=== PATIENT | female | born 1935 | race Caucasian/White ===

== ENCOUNTER 2020-04-07 11:14 | Observation (INO) ==
[2020-04-07] MEDS ORDERED: IOPAMIDOL 100 ML BOTTLE IV ONE (11:15)
[2020-04-07] MEDS ORDERED: 0.9 % SODIUM CHLORIDE 1,000 ML IV ONE (11:27)
[2020-04-07 12:03] LABS: Basophils # (Auto) 0.04 K/mcL (0.00-0.30); Basophils % (Auto) 0.7 % (0.0-2.0); Eosinophils # (Auto) 0.18 K/mcL (0.00-0.70); Eosinophils % (Auto) 2.9 % (0.0-7.0); Granulocytes % (Auto) 77.3 % (38.0-78.0); Hematocrit 42.1 % (34.1-44.9); Lymphocytes # (Auto) 0.71 K/mcL (1.50-4.80); Lymphocytes % (Auto) 11.6 % (15.5-49.0); Mean Cell Volume 85.9 fL (80.0-100.0); Mean Corpuscular HGB Conc 33.3 g/dL (31.0-36.0); Mean Platelet Volume 9.7 fL (7.4-10.4); Monocytes # (Auto) 0.46 K/mcL (0.10-0.90); Monocytes % (Auto) 7.5 % (1.0-12.0); Platelet Count 236 K/mcL (140-440); Red Cell Distribution Width 13.7 % (11.5-14.5); WBC 6.1 K/mcL (4.50-11.00)
[2020-04-07] MEDS ORDERED: ONDANSETRON 4 MG/2 ML VIAL IV ONE (12:12)
--- NOTE | 2020-04-07 12:16 | Emergency Department Note ---
Weakness HPI - General Chief complaint: Weakness Stated complaint: weakness, nausea Time Seen by Provider: 04/07/20 11:17 Source: patient, family, EMS Mode of arrival: ambulatory Limitations: no limitations - History of Present Illness HPI Narrative: 84-year-old female comes in complaining of severe lumbar area pain such that she cannot ambulate anymore. She actually fell 6 days ago and was seen here by Krzysztof Dong PA-C. I reviewed his note. She was discharged home with conservative care after no acute injury seen besides her lower back sprain. Today however she is feeling weak and tired. She is taking hydrocodone which is not hers-someone else's prescription-and so was not had a bowel movement for several days. Her blood pressure is up and she is not able to take any of her medicines because she is nauseous and having vomiting. Cannot hold anything down. Her back continues to hurt but she is able to urinate. No fever or recent illness. She falls because she has balance issues Her daughter was present for the interview and exam and notes that the patient was thinking about committing suicide because her pain was so bad earlier this week but was too weak to follow through. She does not actually want to however just that she wants some relief from her pain - Related Data Home Medications Medication Instructions Recorded Confirmed apixaban 2.5 mg tablet 2.5 mg PO BID 05/28/18 04/07/20 diltiazem HCl 120 mg tablet 120 mg PO BID tab 05/28/18 04/07/20 metoprolol tartrate 50 mg tablet 50 mg PO BID 05/28/18 04/07/20 furosemide 20 mg tablet 20 mg PO QDAY PRN #90 tab 09/19/19 04/07/20 potassium chloride 10 mEq 10 meq PO QDAY PRN #90 tab 09/19/19 04/07/20 tablet,extended release Previous Rx's Medication Instructions Recorded cholecalciferol (vitamin D3) 50 2,000 unit PO QDAY #90 cap 03/15/19 mcg (2,000 unit) capsule chlorthalidone 25 mg tablet 25 mg PO QDAY #90 tab 09/19/19 Albuterol Sulfate [Ventolin] 2 puff INH Q4HP PRN #1 inhaler 01/30/20 fluoxetine 20 mg capsule 40 mg PO QDAY #60 cap 04/20/20 Allergies Allergy/AdvReac Type Severity Reaction Status Date / Time lisinopril Allergy Unknown Unknown Verified 04/07/20 11:18 Review of Systems All systems ED: reviewed and negative except as stated. Past Medical History - Past Medical History Attestation: Yes: The following information was validated with the patient. 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) Pulmonary embolism (Chronic ~08/15/17) Cardiomegaly (Chronic) Hyperlipidemia (Chronic) Memory loss (Chronic) Hypothyroidism (Chronic) 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) Secondary hyperparathyroidism of renal origin (Chronic) CKD (chronic kidney disease) stage 3, GFR 30-59 ml/min (Chronic) Benign hypertension with CKD (chronic kidney disease) stage III (Chronic) Syncope (Chronic) History of fall (Chronic) Stroke (Chronic) Cardiomyopathy, hypertrophic (Chronic) Benign tumor of heart (Chronic) Hyperthyroidism (Chronic) Depression (Chronic) Dizziness (Chronic) Confusion (Chronic) Acute anxiety (Resolved) COPD with exacerbation (Resolved) Dyspnea (Resolved) Elevated creatine kinase (Resolved) Headache (Resolved) Palpitation (Resolved) Skin lesion (Inactive) Past Surgical History (Last Reviewed 02/17/20 @ 06:33 by COOPER Cruz) History of cholecystectomy (Chronic ~11/28/14) History of ventriculoperitoneal shunting (Chronic) - Social History smoking status: Former smoker Physical Exam Normocephalic atraumatic. Conjunctive are clear sclerae white nonicteric. No nasal discharge or congestion. Oropharynx and tongue are dry. Neck is supple without lymphadenopathy or thyromegaly. Heart is mild tachycardia but regular rhythm. No murmur appreciated. Lungs are clear to auscultation bilaterally without wheezes rales rhonchi or respiratory distress. Abdomen is soft nontender nondistended. Her daughter and I helped her sit up and I palpated her lumbar spine area which is diffusely tender but I do not see any ecchymosis laceration abrasion or any other acute finding. There is really no point tenderness anywhere nor step-off. She does have lots of seborrheic keratosis across her back. No pedal edema. She is alert oriented able to give me reasonable history Limitations: no limitations Course Vital Signs Temperature 98.1 F 04/07/20 11:15 Pulse Rate 100 H 04/07/20 11:15 Respiratory Rate 18 04/07/20 11:15 Blood Pressure 217/114 04/07/20 11:15 Pulse Oximetry (%) 95 04/07/20 11:15 Temperature 98.1 F 04/07/20 11:15 Pulse Rate 111 H 04/07/20 15:50 Respiratory Rate 20 04/07/20 15:50 Blood Pressure 147/88 04/07/20 15:00 Pulse Oximetry (%) 95 04/07/20 15:50 Weakness - Lab Data Lab results reviewed: Yes I reviewed the patient's lab results. Result diagrams: 04/07/20 11:37 04/07/20 11:36 Lab Results 04/07/20 04/07/20 04/07/20 Range/Units 11:36 11:36 11:36 WBC (4.50-11.00) K/mcL RBC (3.59-5.38) M/mcL Hgb (11.2-15.7) g/dL Hct (34.1-44.9) % MCV (80.0-100.0) fL MCH (26.0-34.0) pg MCHC (31.0-36.0) g/dL RDW (11.5-14.5) % Plt Count (140-440) K/mcL MPV (7.4-10.4) fL Gran % (38.0-78.0) % Lymph % (Auto) (15.5-49.0) % Graves % (Auto) (1.0-12.0) % Eos % (Auto) (0.0-7.0) % Baso % (Auto) (0.0-2.0) % Gran # (1.80-8.00) K/mcL Lymph # (Auto) (1.50-4.80) K/mcL Graves # (Auto) (0.10-0.90) K/mcL Eos # (Auto) (0.00-0.70) K/mcL Baso # (Auto) (0.00-0.30) K/mcL Sodium 141 (133-145) mmol/L Potassium 3.7 (3.3-5.1) mmol/L Chloride 102 (96-108) mmol/L Carbon Dioxide 24 (22-30) mmol/L Anion Gap 15.0 (8-16) BUN 21 (8-23) mg/dl Creatinine 0.9 (0.6-1.1) mg/dl GFR Calculation 58 Glucose 108 H (70-105) mg/dL Calcium 8.7 (8.6-10.4) mg/dl Total Bilirubin 0.9 (0.0-1.0) mg/dL AST 26 (0-37) U/l ALT 17 (0-40) U/l Alkaline Phosphatase 113 (39-117) U/L Total Creatine Kinase 36 (24-170) IU/L Troponin T < 0.01 (0-0.03) ng/ml C-Reactive Protein 5.3 H (0.0-0.8) mg/dl Total Protein 6.6 (5.9-8.4) gm/dL Albumin 3.7 (3.2-5.2) gm/dL Globulin 2.9 (2.2-3.7) gm/dL Albumin/Globulin Ratio 1.3 (1.0-2.3) Prealbumin 14.5 L (20-40) mg/dl Lipase 23 (7-60) U/L Procalcitonin 0.08 (<0.10) ng/mL TSH 5.69 H (0.27-5.01) uIU/ml Urine Color Urine Appearance Urine pH (5.0-9.0) Ur Specific [place] (1.000-1.035) Urine Protein (NEG) mg/dL Urine Glucose (UA) (NEG) mg/dL Urine Ketones (NEG) mg/dL Urine Occult Blood (<0.03) mg/dL Urine Nitrate (NEG) Urine Bilirubin (NEG) mg/dL Urine Urobilinogen (NEG) mg/dL Ur Leukocyte Esterase (NEG) /uL Urine RBC (0-1) /hpf Urine WBC (0-4) /hpf Ur Squamous Epith Cells (0-4) /hpf Ur Transition Epith Cell (0-2) /hpf Urine Bacteria (0) /hpf Ur Culture Indicated? 04/07/20 04/07/20 Range/Units 11:37 12:08 WBC 6.1 (4.50-11.00) K/mcL RBC 4.90 (3.59-5.38) M/mcL Hgb 14.0 (11.2-15.7) g/dL Hct 42.1 (34.1-44.9) % MCV 85.9 (80.0-100.0) fL MCH 28.6 (26.0-34.0) pg MCHC 33.3 (31.0-36.0) g/dL RDW 13.7 (11.5-14.5) % Plt Count 236 (140-440) K/mcL MPV 9.7 (7.4-10.4) fL Gran % 77.3 (38.0-78.0) % Lymph % (Auto) 11.6 L (15.5-49.0) % Graves % (Auto) 7.5 (1.0-12.0) % Eos % (Auto) 2.9 (0.0-7.0) % Baso % (Auto) 0.7 (0.0-2.0) % Gran # 4.72 (1.80-8.00) K/mcL Lymph # (Auto) 0.71 L (1.50-4.80) K/mcL Graves # (Auto) 0.46 (0.10-0.90) K/mcL Eos # (Auto) 0.18 (0.00-0.70) K/mcL Baso # (Auto) 0.04 (0.00-0.30) K/mcL Sodium (133-145) mmol/L Potassium (3.3-5.1) mmol/L Chloride (96-108) mmol/L Carbon Dioxide (22-30) mmol/L Anion Gap (8-16) BUN (8-23) mg/dl Creatinine (0.6-1.1) mg/dl GFR Calculation Glucose (70-105) mg/dL Calcium (8.6-10.4) mg/dl Total Bilirubin (0.0-1.0) mg/dL AST (0-37) U/l ALT (0-40) U/l Alkaline Phosphatase (39-117) U/L Total Creatine Kinase (24-170) IU/L Troponin T (0-0.03) ng/ml C-Reactive Protein (0.0-0.8) mg/dl Total Protein (5.9-8.4) gm/dL Albumin (3.2-5.2) gm/dL Globulin (2.2-3.7) gm/dL Albumin/Globulin Ratio (1.0-2.3) Prealbumin (20-40) mg/dl Lipase (7-60) U/L Procalcitonin (<0.10) ng/mL TSH (0.27-5.01) uIU/ml Urine Color Straw Urine Appearance Clear Urine pH 6.0 (5.0-9.0) Ur Specific [place] 1.010 (1.000-1.035) Urine Protein Neg (NEG) mg/dL Urine Glucose (UA) Negative (NEG) mg/dL Urine Ketones 5/tr A (NEG) mg/dL Urine Occult Blood 0.03 A (<0.03) mg/dL Urine Nitrate Neg (NEG) Urine Bilirubin Neg (NEG) mg/dL Urine Urobilinogen Neg (NEG) mg/dL Ur Leukocyte Esterase Neg (NEG) /uL Urine RBC 1 (0-1) /hpf Urine WBC 1 (0-4) /hpf Ur Squamous Epith Cells 2 (0-4) /hpf Ur Transition Epith Cell < 1 (0-2) /hpf Urine Bacteria 0 (0) /hpf Ur Culture Indicated? No - Radiology Data Radiology results reviewed: Yes I reviewed the patient's radiology results. CT scan of the abdomen pelvis does not reveal any acute cause for her pain CT IMPRESSION: 1. No acute posttraumatic change. History of fall one week prior. 2. 3. Sigmoid diverticulosis, but no evidence for diverticulitis. Mild diverticulitis may be CT occult. 4. Moderate dilatation of bile and pancreatic ducts - most compatible with post cholecystectomy papillary stenosis. 5. Small right and tiny left pleural effusions. Chronic bronchitis changes. 6. Moderate cardiomegaly with heavy calcification in the mitral annulus. 7. Moderate T12, and mild L4 and L5 compression fractures likely due to chronic in osteoporosis. At L4-5, there is severe central canal and lateral recess stenosis due to degenerative facet disease. Interpreted and Authenticated by: Jose Alejandro Valenzuela 04/07/20 Disposition Pt seen by MACHINE OPERATOR HAY STACKER/PA only: No Clinical Impression: Weakness, Drug induced constipation, Central stenosis of spinal canal, Lumbar pain Summary: Likely drug-induced constipation causing her lower belly pain but will get a CT scan of the abdomen and pelvis to be sure-this will allow us to look at her lower spine as well as she continues to have significant pain unrelieved by narcotics. The other possibilities remaining in the differential including cardiac disease versus infectious disease versus pulmonary issues as cause for her weakness. We will check laboratory and start her on IV fluids. Give her pain and nausea medicine. It is noted her blood pressure is very elevated but she is in pain Laboratories were unrevealing. CT scan shows lumbar central canal stenosis - exacerbation of arthritis related to this is likely the cause of her lumbar pain. She got 2 doses of Dilaudid and her blood pressure came down to normal le vels and she was feeling much better. Pre-albumin shows likely malnutrition over the last few month Our social problems specialist Bertha was looking at trying to get her into [facility] for ongoing care. Unfortunately we were unable to get the paperwork through in time to get her there today. She is requiring IV pain medicine to get control. She is not able to take care of herself at home and is not able to walk well, having balance issues. So we will bring her into the hospital on observation status for pain management. Disposition: Xfer As Outpt/Obs ([facility]) Condition: Fair Referrals: Liam Nicholas ARNP [Primary Care Provider] -
[2020-04-07 12:25] LABS: Prealbumin 14.5 mg/dl (20-40)
[2020-04-07 12:36] LABS: ALT/SGPT 17 U/l (0-40); AST/SGOT 26 U/l (0-37); Albumin 3.7 gm/dL (3.2-5.2); Albumin/Globulin Ratio 1.3 (1.0-2.3); Alkaline Phosphatase 113 U/L (39-117); Bilirubin,Total 0.9 mg/dL (0.0-1.0); Blood Urea Nitrogen 21 mg/dl (8-23); C-Reactive Protein 5.3 mg/dl (0.0-0.8); Calcium 8.7 mg/dl (8.6-10.4); Carbon Dioxide 24 mmol/L (22-30); Chloride 102 mmol/L (96-108); Creatine Kinase 36 IU/L (24-170); Globulin 2.9 gm/dL (2.2-3.7); Glomerular Filtration Rate 58; Glucose 108 mg/dL (70-105); Thyroid Stimulating Hormone 5.69 uIU/ml (0.27-5.01)
[2020-04-07] MEDS: HYDROmorphone 0.5 MG/0.5 ML SYRINGE IV PRN ×3 (12:43→23:27)
[2020-04-07 13:16] LABS: Appearance,Urine CLEAR; Bacteria,Urine 0 /hpf (0); Bilirubin,Urine NEG (NEG); Color,Urine STRAW; Culture Indicated,Urine NO; Glucose,Urine (UA) NEGATIVE (NEG); Ketones,Urine 5/TR mg/dL (NEG); Leukocyte Esterase,Urine NEG /uL (NEG); Nitrate,Urine NEG (NEG); Protein,Urine NEG (NEG); Urine Blood 0.03 mg/dL (<0.03); Urine RBC 1 /hpf (0-1); Urine Squamous Epithelial Cell 2 /hpf (0-4); Urine Transitional Epi Cells < 1 /hpf (0-2); Urine WBC 1 /hpf (0-4); Urobilinogen,Urine NEG (NEG)
--- NOTE | 2020-04-07 13:33 | Cat Scan Report ---
CLINICAL INFORMATION: Trauma one week prior. Left lower quadrant pain COMPARISON: None. TECHNIQUE: Following enteric contrast, 80 cc of Isovue-370 were injected intravenously, and 60 seconds later, 0.625 mm helical slices were obtained from the mid heart through the subtrochanteric regions. Following reconstruction, 2.5 mm sagittal, coronal and axial reformatted images were processed and reviewed at bone, lung and soft tissue windows. Five minutes later, 0.625 mm helical slices were obtained from the mid heart through the kidneys and viewed at soft tissue windows.The exam was performed using radiation dose optimization techniques including, but not limited to, automated exposure control, adjustment of the mA and/or kV according to patient size and use of iterative reconstruction technique. FINDINGS: Lung bases show small left and tiny right pleural effusions. Mosaic perfusion pattern in the lung bases likely reflects chronic bronchitis and small airways disease. Scattered scarring or atelectasis is also seen. The heart is moderately enlarged with very heavy calcification of mitral annulus and with small amounts in the aortic valve Abdominal images show scattered cysts throughout the liver ranging up to 4 cm in the caudate lobe. Gallbladder is surgically absent. The intrahepatic, common hepatic and common bile ducts are moderately dilated: CBD is 12 mm with smooth tapering near ampullary region. Pancreas duct also moderately dilated colon 4 mm. Findings are compatible with post cholecystectomy papillary stenosis. The pancreas, and both adrenal glands are normal. There is a 15 mm simple cyst superior pole right kidney. Both kidneys are, otherwise, normal. The abdominal aorta contains a sclerotic plaque, but is normal in diameter. No stenosis seen aortic branches. Four five low-attenuation lesions in the spleen measuring up to 8 mm are likely simple cysts or small benign lymphangiomas or hemangiomas. There is no free air, free fluid or adenopathy. Pelvic images show hysterectomy/ oophorectomy changes. The urinary bladder is normal. There are multiple sigmoid diverticuli, but no CT evidence for diverticulitis. The remaining colon small bowel and stomach are normal. Bone windows show moderate T12 and mild L4 and L5 compression fractures are likely old related osteoporosis IMPRESSION: 1. No acute posttraumatic change. History of fall one week prior. 2. 3. Sigmoid diverticulosis, but no evidence for diverticulitis. Mild diverticulitis may be CT occult. 4. Moderate dilatation of bile and pancreatic ducts - most compatible with post cholecystectomy papillary stenosis. 5. Small right and tiny left pleural effusions. Chronic bronchitis changes. 6. Moderate cardiomegaly with heavy calcification in the mitral annulus. 7. Moderate T12, and mild L4 and L5 compression fractures likely due to chronic in osteoporosis. At L4-5, there is severe central canal and lateral recess stenosis due to degenerative facet disease. Interpreted and Authenticated by: Jose Alejandro Valenzuela 04/07/20
--- NOTE | 2020-04-07 15:21 | Internal Med History&Physical ---
Medical - H&P: [facility] Patient information: Note initiated : 04/07/20 at 3:21 pm Service Date, if different from initiated Date: [] Patient: Nelly Tuttle a 84 y/o F admitted on for weakness, nausea. Chief Complaint: [] Chief complaint: Weakness, nausea, constipation back pain History of present illness: Ms. Tuttle is a 84 year old F presents to the ER with worsening lower back pain/abdominal pain following a fall roughly a week ago. Patient apparently bumped into the kitchen counter and fell on hard surface sustaining back injury. She denied associated chest palpitations/lightheadedness dizziness or seizure- like episode. She denies associated loss of consciousness or neurological changes or incontinence or unilateral weakness. She continued to work with the symptoms including application of local pain medication, used narcotics from a friend with minimal relief. She now presents with worsening pain, constipation and associated nausea and loss of appetite Initial work-up in the ER was consistent with L4-5 compression fracture with severe spinal stenosis however no evidence of neurological compromise. Subsequently hospital service was consulted while patient will require [facility] physical therapy and transition to care facility being coordinated by case management. At the time evaluation patient is alert and oriented. She was able to answer most of the questions or provide history as above. She denies fever, diarrhea, dysuria, rash. 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) Secondary hyperparathyroidism of renal origin (Chronic) CKD (chronic kidney disease) stage 3, GFR 30-59 ml/min (Chronic) Benign hypertension with CKD (chronic kidney disease) stage III (Chronic) Syncope (Chronic) History of fall (Chronic) Stroke (Chronic) 2016 Cardiomyopathy, hypertrophic (Chronic) Benign tumor of heart (Chronic) Hyperthyroidism (Chronic) Depression (Chronic) Dizziness (Chronic) Confusion (Chronic) Acute anxiety (Resolved) COPD with exacerbation (Resolved) Dyspnea (Resolved) Elevated creatine kinase (Resolved) Headache (Resolved) Palpitation (Resolved) Skin lesion (Inactive) Surgical History History of cholecystectomy (Chronic ~11/28/14) Dr. Staton History of ventriculoperitoneal shunting (Chronic) Approx 1959 - [place] Family History Mother Heart disease Father Cancer Family/Other Breast cancer Unknown Aunt Hyperthyroidism Unknown Depression Unknown AV block, 1st degree Unknown Cardiomyopathy Unknown Hypertension Unknown Hyperlipidemia Unknown Dyspnea Unknown Palpitations Unknown CVA (cerebral vascular accident) Unknown LVH (left ventricular hypertrophy) Unknown Sister Heart failure Cancer Social History household members: spouse housing: house marital status: occupational status: retired pets and animals: Yes smoking status: Former smoker alcohol intake frequency: holiday/special occasion only substance use type: does not use Medical - H&P: Meds Home Medications Medication Instructions Recorded Confirmed Type apixaban 2.5 mg tablet 2.5 mg PO BID 05/28/18 04/07/20 History metoprolol tartrate 50 mg tablet 50 mg PO BID 05/28/18 04/07/20 History cholecalciferol (vitamin D3) 50 2,000 unit PO QDAY #90 cap 03/15/19 04/07/20 Rx mcg (2,000 unit) capsule chlorthalidone 25 mg tablet 25 mg PO QDAY #90 tab 09/19/19 04/07/20 Rx furosemide 20 mg tablet 20 mg PO QDAY PRN #90 tab 09/19/19 04/07/20 History potassium chloride 10 mEq 10 meq PO QDAY PRN #90 tab 09/19/19 04/07/20 History tablet,extended release Albuterol Sulfate [Ventolin] 2 puff INH Q4HP PRN #1 inhaler 01/30/20 04/07/20 Rx fluoxetine 20 mg capsule 40 mg PO QDAY #60 cap 03/16/20 04/07/20 Rx Diltiazem HCl [Diltiazem 24Hr Cd] 120 mg PO BID 04/07/20 04/07/20 History Allergies Allergy/AdvReac Type Severity Reaction Status Date / Time lisinopril Allergy Unknown Unknown Verified 04/07/20 11:18 Medical - H&P: Exam - Constitutional Vitals: Temp Pulse Resp BP Pulse Ox 98.1 F 111 H 23 H 147/88 92 04/07/20 11:15 04/07/20 15:00 04/07/20 15:00 04/07/20 15:00 04/07/20 15:00 General appearance: obese Exam: Alert oriented Head normocephalic Oral cavity dry no ear nose discharge Neck no lymphadenopathy S1-S2 regular rhythm Nonlabored breathing Abdomen soft nontender Lower extremity no sinus clubbing no joint swelling Skin no suspicious lesion Psych alert cooperative but anxious Neuro nonfocal Medical - H&P: Reslt - Labs CBC & Chem 7: 04/08/20 05:25 04/08/20 05:25 Labs: Short CBC 04/07/20 Range/Units 11:37 WBC 6.1 (4.50-11.00) K/mcL Hgb 14.0 (11.2-15.7) g/dL Hct 42.1 (34.1-44.9) % Plt Count 236 (140-440) K/mcL BMP 04/07/20 11:36 Sodium 141 Potassium 3.7 Chloride 102 Carbon Dioxide 24 BUN 21 Creatinine 0.9 Glucose 108 H Calcium 8.7 Cardiac Enzymes 04/07/20 04/07/20 Range/Units 11:36 11:36 Total Creatine Kinase 36 (24-170) IU/L Troponin T < 0.01 (0-0.03) ng/ml Liver Function 04/07/20 Range/Units 11:36 Total Bilirubin 0.9 (0.0-1.0) mg/dL AST 26 (0-37) U/l ALT 17 (0-40) U/l Alkaline Phosphatase 113 (39-117) U/L Albumin 3.7 (3.2-5.2) gm/dL Urine 04/07/20 Range/Units 12:08 Urine Color Straw Urine Appearance Clear Urine pH 6.0 (5.0-9.0) Ur Specific [place] 1.010 (1.000-1.035) Urine Protein Neg (NEG) mg/dL Urine Glucose (UA) Negative (NEG) mg/dL Medical - H&P: A/P (1) Lumbar pain Current visit: Yes Status: Acute * Intractable pain secondary to L4-L5 compression fracture with severe spinal stenosis. Start opioids/acetaminophen/local lidocaine patches and physical therapy * Severe weakness and falls-physical therapy/gait and safety eval. * Constipation start aggressive bowel protocol/mag citrate for bowel evacuation * Intractable nausea vomiting secondary abdominal pain/constipation. Continue antiemetics * History of chronic atrial fibrillation currently rate controlled. Anticoagulation on apixaban. * Hypertension continue diltiazem/metoprolol/chlorthalidone * Anxiety/depressive disorder continue fluoxetine * History of CVA currently on anticoagulation on apixaban * Full code Plan * Observation admit * Multimodal pain management * Pre-existing medical condition management home meds * Bowel evacuation * Case management coordinate discharge planning
[2020-04-07] MEDS ORDERED: ALBUTEROL SULFATE 200 PUFF INHALER INH PRN (16:41)
[2020-04-07] MEDS ORDERED: BISACODYL 10 MG SUPP.RECT PR PRN (16:41)
[2020-04-07] MEDS ORDERED: ONDANSETRON 4 MG ODT TABLET SL PRN (16:41)
[2020-04-07] MEDS ORDERED: FUROSEMIDE 20 MG TABLET PO PRN (16:41)
[2020-04-07] MEDS ORDERED: MAGNESIUM CITRATE 300 ML ORAL.SOL PO ONE (16:41)
[2020-04-07] MEDS ORDERED: ACETAMINOPHEN 650 MG/65 ML BOTTLE IV PRN (16:41)
[2020-04-07] MEDS ORDERED: POTASSIUM CHLORIDE 20 MEQ PACKET PO PRN (16:41)
[2020-04-07] MEDS ORDERED: MAGNESIUM SULFATE 2 GM/50 ML BAG IV PRN (16:41)
[2020-04-07] MEDS ORDERED: POTASSIUM CHLORIDE 10 MEQ TABLET PO PRN (16:41)
[2020-04-07] MEDS ORDERED: ONDANSETRON 4 MG/2 ML VIAL IV PRN (16:41)
[2020-04-07] MEDS: METOPROLOL TARTRATE 50 MG TABLET PO SCH (20:18)
[2020-04-07] MEDS: APIXABAN 2.5 MG TABLET PO SCH (20:18)
[2020-04-07] MEDS: DILTIAZEM 120 MG CAP.XL.24H PO SCH (20:18)
[2020-04-07] MEDS: SENNOSIDES/DOCUSATE SODIUM 1 TAB TABLET PO SCH (20:18)
[2020-04-07] MEDS: DOCUSATE SODIUM 100 MG CAPSULE PO SCH (20:18)
[2020-04-07] MEDS: MELATONIN 3 MG TABLET PO PRN (20:20)
[2020-04-07] MEDS ORDERED: MAGNESIUM HYDROXIDE 30 ML ORAL.SUSP PO PRN (21:00)
[2020-04-07] MEDS: 0.9 % SODIUM CHLORIDE 10 ML SYRINGE IV SCH (23:02)
[2020-04-08] MEDS: HYDROmorphone 0.5 MG/0.5 ML SYRINGE IV PRN ×3 (06:03→19:03)
[2020-04-08] MEDS: 0.9 % SODIUM CHLORIDE 10 ML SYRINGE IV SCH ×3 (06:04→21:05)
[2020-04-08 07:01] LABS: Hematocrit 36.1 % (34.1-44.9); Hemoglobin 11.5 g/dL (11.2-15.7); Mean Cell Volume 89.1 fL (80.0-100.0); Mean Corpuscular HGB Conc 31.9 g/dL (31.0-36.0); Mean Platelet Volume 9.8 fL (7.4-10.4); Platelet Count 226 K/mcL (140-440); RBC 4.05 M/mcL (3.59-5.38); WBC 5.4 K/mcL (4.50-11.00)
[2020-04-08 08:07] LABS: Band Neutrophils % 1 % (0-10); Eosinophils % (Manual) 3 % (0-7); Lymphocytes % 24 % (15-49); Monocytes % (Manual) 6 % (1-12); Platelet Estimate NORMAL (NORMAL); RBC Morphology NORMAL (NORMAL); Segmented Neutrophils % 66 % (38-78)
[2020-04-08 08:14] LABS: ALT/SGPT 19 U/l (0-40); AST/SGOT 29 U/l (0-37); Albumin 3.3 gm/dL (3.2-5.2); Albumin/Globulin Ratio 1.2 (1.0-2.3); Alkaline Phosphatase 174 U/L (39-117); Bilirubin,Direct < 0.2 mg/dL (0.0-0.3); Bilirubin,Total 0.5 mg/dL (0.0-1.0); Blood Urea Nitrogen 26 mg/dl (8-23); Calcium 8.3 mg/dl (8.6-10.4); Carbon Dioxide 26 mmol/L (22-30); Chloride 99 mmol/L (96-108); Globulin 2.7 gm/dL (2.2-3.7); Glomerular Filtration Rate 45; Glucose 94 mg/dL (70-105); Lactate Dehydrogenase 198 U/L (94-250); Phosphorous 3.4 mg/dL (2.7-4.5); Triglycerides 104 mg/dl (<150); Uric Acid 6.3 mg/dL (2.5-8.0)
[2020-04-08] MEDS: MULTIVIT,THER IRON,CA,FA & MIN 1 TABLET PO SCH (08:22)
[2020-04-08] MEDS: CHLORTHALIDONE 25 MG TABLET PO SCH (08:22)
[2020-04-08] MEDS: METOPROLOL TARTRATE 50 MG TABLET PO SCH ×2 (08:22→21:05)
[2020-04-08] MEDS: APIXABAN 2.5 MG TABLET PO SCH ×2 (08:22→21:05)
[2020-04-08] MEDS: VITAMIN D3 1,000 UNIT TABLET PO SCH (08:22)
[2020-04-08] MEDS: FLUoxetine HCL 20 MG CAPSULE PO SCH (08:22)
[2020-04-08] MEDS: DILTIAZEM 120 MG CAP.XL.24H PO SCH ×2 (08:23→21:05)
[2020-04-08] MEDS: DOCUSATE SODIUM 100 MG CAPSULE PO SCH ×2 (08:58→21:05)
--- NOTE | 2020-04-08 14:46 | Internal Med Progress Note ---
Medical - PN: Subj Patient information: Note initiated : 04/08/20 at 2:43 pm Service Date, if different from initiated Date: [] Patient: Nelly Tuttle 84 y/o F admitted on 04/07/20 for weakness, nausea. Chief Complaint: [] Interval history: Ms. Tuttle is a 84 year old F presents to the ER with worsening lower back dionte n/abdominal pain following a fall roughly a week ago. Patient apparently bumped into the kitchen counter and fell on hard surface sustaining back injury. She denied associated chest palpitations/lightheadedness dizziness or seizure-like episode. She denies associated loss of consciousness or neurological changes or incontinence or unilateral weakness. She continued to work with the symptoms including application of local pain medication, used narcotics from a friend with minimal relief. She now presents with worsening pain, constipation and associated nausea and loss of appetite Initial work-up in the ER was consistent with L4-5 compression fracture with severe spinal stenosis however no evidence of neurological compromise. Subsequently hospital service was consulted while patient will require to undergo physical therapy and transition to care facility being coordinated by case management. At the time evaluation patient is alert and oriented. She was able to answer most of the questions or provide history as above. She denies fever, diarrhea, dysuria, rash. She denies changes in medications 04/08-patient doing well. No overnight events. No concerns per staff. No fever chills nausea vomiting. Large BM today. Pain improved. Continuing opioids/Tylenol. Transitioning to SNF in 24 hours. Continue PT OT. - Constitutional Vitals: Vital Signs Temp Pulse Resp BP Pulse Ox 98.3 F 47 L 18 137/52 97 04/08/20 14:36 04/08/20 14:36 04/08/20 14:36 04/08/20 14:36 04/08/20 14:36 Period Temp Pulse Resp BP Sys/Espinoza Pulse Ox Last 24 Hr 97.4 F-98.3 F 47-115 18-23 115-180/52-97 88-97 Intake and Output 04/08/20 04/08/20 04/08/20 05:59 13:59 21:59 Intake Total 700 860 Balance 700 860 Intake & Output: Intake & Output 04/08/20 04/08/20 04/08/20 05:59 13:59 21:59 Intake Total 700 860 Balance 700 860 Intake: Oral 700 860 Other: Meal Lunch Percent of Meal Consumed 75% Feeding Ability Assist with Tray Set Up # Voids 1 1 # Bowel Movements 1 General appearance: no acute distress Exam: Alert oriented Nonlabored breathing No anxiety Nondistended abdomen Medical - PN: Obj Da - Labs CBC & Chem 7: 04/08/20 05:25 04/08/20 05:25 Labs: Abnormal Lab Results 04/08/20 04/07/20 04/07/20 05:25 12:08 11:37 Lymph % (Auto) 11.6 L Lymph # (Auto) 0.71 L BUN 26 H Glucose Calcium 8.3 L GGT 203 H Alkaline Phosphatase 174 H C-Reactive Protein Prealbumin TSH Urine Ketones 5/tr A Urine Occult Blood 0.03 A 04/07/20 11:36 Lymph % (Auto) Lymph # (Auto) BUN Glucose 108 H Calcium GGT Alkaline Phosphatase C-Reactive Protein 5.3 H Prealbumin 14.5 L TSH 5.69 H Urine Ketones Urine Occult Blood Meds: Medications Acetaminophen (Tylenol) 650 mg PO Q4-6HP PRN; Protocol PRN Reason: Per Pain Protocol/Fever > 101 Albuterol Sulfate (Ventolin) 2 puff INH Q4HP PRN PRN Reason: short of breath, cough, wheeze Apixaban (Eliquis) 2.5 mg PO BID [facility] Last Admin: 04/08/20 08:22 Dose: 2.5 mg Documented by: Bisacodyl (Dulcolax) 10 mg VA Q2-3DAYS PRN PRN Reason: Constipation Chlorthalidone (Hygroton) 25 mg PO QDAY [facility] Last Admin: 04/08/20 08:22 Dose: 25 mg Documented by: Diltiazem HCl (Cardizem Sr) 120 mg PO BID [facility] Last Admin: 04/08/20 08:23 Dose: 120 mg Documented by: Docusate Sodium (Colace) 100 mg PO BID [facility] Last Admin: 04/08/20 08:58 Dose: Not Given Documented by: Fluoxetine HCl (Prozac) 40 mg PO QDAY [facility] Last Admin: 04/08/20 08:22 Dose: 40 mg Documented by: Furosemide (Lasix) 20 mg PO DAILYP PRN PRN Reason: edema Hydromorphone HCl (Dilaudid) 0 mg IV Q4HP PRN; Protocol PRN Reason: Per Pain Protocol Last Admin: 04/08/20 09:49 Dose: 0.5 mg Documented by: Acetaminophen (Ofirmev) 650 mg in 65 mls @ 130 mls/hr IV Q6HP PRN; Protocol PRN Reason: Per Pain Protocol/Fever > 101 Last Admin: 04/07/20 23:33 Dose: 130 mls/hr Documented by: Magnesium Sulfate (Magnesium Sulfate) 2 gm in 50 mls @ 50 mls/hr IV UD PRN PRN Reason: MG = or < 1.7 Iron Carb/Multivit/Sales And Events Coordinator/Folic Acid (Multivitamin W/Minerals) 1 tab PO DAILY [facility] Last Admin: 04/08/20 08:22 Dose: 1 tab Documented by: Lidocaine (Lidoderm) 1 patch TOPICAL [facility] Magnesium Hydroxide (Milk Of Magnesia) 30 ml PO HSP PRN PRN Reason: Constipation Melatonin (Melatonin 3mg Tablet) 3 mg PO HSP PRN PRN Reason: Insomnia Last Admin: 04/07/20 20:20 Dose: 3 mg Documented by: Metoprolol Tartrate (Lopressor) 50 mg PO BID [facility] Last Admin: 04/08/20 08:22 Dose: 50 mg Documented by: Ondansetron HCl (Zofran Odt) 4 mg SL Q4-6HP PRN; Protocol PRN Reason: Nausea And Vomiting Ondansetron HCl (Zofran) 4 mg IV Q4-6HP PRN; Protocol PRN Reason: Nausea And Vomiting Oxycodone HCl (Roxicodone) 2.5 mg PO Q4-6HP PRN; Protocol PRN Reason: Per Pain Protocol Polyethylene Glycol (Miralax) 17 gm PO DAILYP PRN PRN Reason: Constipation Potassium Chloride (Klor-Con) 40 meq PO DAILYP PRN PRN Reason: K+ < 3.5 Potassium Chloride (Kdur) 10 meq PO DAILYP PRN PRN Reason: WHEN TAKES FUROSEMIDE Senna/Docusate Sodium (Senna Plus Tablet) 1 tab PO [facility] Last Admin: 04/07/20 20:18 Dose: 1 tab Documented by: Sodium Chloride (Saline Flush) 10 ml IV Q8 [facility] Last Admin: 04/08/20 06:04 Dose: 10 ml Documented by: Tramadol HCl (Ultram) 50 mg PO Q4HP PRN PRN Reason: Pain Vitamin D (Vitamin D3) 2,000 unit PO DAILY [facility] Last Admin: 04/08/20 08:22 Dose: 2,000 unit Documented by: Medical - PN: A/P - Time Spent With Patient Total time spent is greater than 50% in coordination of care (as documented) at patient's floor/unit and/or counseling patient: 25 - 35 minutes (1) Lumbar pain Status: Acute Assessment and plan: * Intractable lower back - pain secondary to L4-L5 compression fracture with severe spinal stenosis. Start opioids/acetaminophen/local lidocaine patches and physical therapy * Severe weakness and falls-physical therapy/gait and safety eval/directed therapies. * Constipation -resolved with laxatives * Intractable nausea vomiting secondary abdominal pain/constipation. Continue antiemetics * History of chronic atrial fibrillation currently rate controlled. Anticoagulation on apixaban. * Hypertension continue diltiazem/metoprolol/chlorthalidone * Anxiety/depressive disorder continue fluoxetine * History of CVA currently on anticoagulation on apixaban * Full code Plan * Continue pain management * Pre-existing medical condition management home meds * PT OT/nutrition support * Discharge likely in 24 hours to SNF Current Visit: Yes Medical - PN: Qual - VTE Deep Vein Thrombosis/Pulmonary Embolism Present on Admission: No
[2020-04-08] MEDS: traMADol 50 MG TABLET PO PRN (19:16)
[2020-04-08] MEDS: LIDOCAINE PATCH TOPICAL SCH (21:04)
[2020-04-08] MEDS: SENNOSIDES/DOCUSATE SODIUM 1 TAB TABLET PO SCH (21:05)
[2020-04-09] MEDS: traMADol 50 MG TABLET PO PRN ×5 (02:34→21:40)
[2020-04-09] MEDS: 0.9 % SODIUM CHLORIDE 10 ML SYRINGE IV SCH ×3 (05:24→20:02)
[2020-04-09 06:29] LABS: Hematocrit 34.9 % (34.1-44.9); Hemoglobin 11.2 g/dL (11.2-15.7); Mean Corpuscular HGB Conc 32.1 g/dL (31.0-36.0); Mean Platelet Volume 9.7 fL (7.4-10.4); Platelet Count 220 K/mcL (140-440); RBC 3.92 M/mcL (3.59-5.38); WBC 6.6 K/mcL (4.50-11.00)
[2020-04-09 06:59] LABS: ALT/SGPT 26 U/l (0-40); AST/SGOT 34 U/l (0-37); Albumin 3.3 gm/dL (3.2-5.2); Albumin/Globulin Ratio 1.2 (1.0-2.3); Alkaline Phosphatase 217 U/L (39-117); Bilirubin,Direct < 0.2 mg/dL (0.0-0.3); Bilirubin,Total 0.5 mg/dL (0.0-1.0); Blood Urea Nitrogen 27 mg/dl (8-23); Calcium 8.3 mg/dl (8.6-10.4); Carbon Dioxide 25 mmol/L (22-30); Chloride 100 mmol/L (96-108); Globulin 2.7 gm/dL (2.2-3.7); Glomerular Filtration Rate 45; Glucose 98 mg/dL (70-105); Lactate Dehydrogenase 199 U/L (94-250); Phosphorous 2.8 mg/dL (2.7-4.5); Triglycerides 120 mg/dl (<150); Uric Acid 6.4 mg/dL (2.5-8.0)
[2020-04-09 08:24] LABS: Eosinophils % (Manual) 8 % (0-7); Lymphocytes % 16 % (15-49); Monocytes % (Manual) 9 % (1-12); Platelet Estimate NORMAL (NORMAL); RBC Morphology NORMAL (NORMAL); Segmented Neutrophils % 67 % (38-78)
[2020-04-09] MEDS: VITAMIN D3 1,000 UNIT TABLET PO SCH (09:06)
[2020-04-09] MEDS: MULTIVIT,THER IRON,CA,FA & MIN 1 TABLET PO SCH (09:06)
[2020-04-09] MEDS: FLUoxetine HCL 20 MG CAPSULE PO SCH (09:06)
[2020-04-09] MEDS: DILTIAZEM 120 MG CAP.XL.24H PO SCH ×2 (09:06→20:01)
[2020-04-09] MEDS: METOPROLOL TARTRATE 50 MG TABLET PO SCH ×2 (09:06→20:01)
[2020-04-09] MEDS: APIXABAN 2.5 MG TABLET PO SCH ×2 (09:06→20:01)
[2020-04-09] MEDS: CHLORTHALIDONE 25 MG TABLET PO SCH (09:06)
[2020-04-09] MEDS: DOCUSATE SODIUM 100 MG CAPSULE PO SCH ×2 (09:06→20:01)
--- NOTE | 2020-04-09 10:05 | Discharge Summary ---
Medical - DS: Prov Patient information: Note initiated : 04/13/20 at 09:03 am Service Date, if different from initiated Date: [] Patient: Nelly Tuttle 84 y/o F admitted on 04/07/20 for weakness, nausea. Chief Complaint: [] Date of admission: 04/07/20 16:28 Discharge date: 04/13/20 Primary care physician: Liam Nicholas Consults: 04/08/20 07:07 Consult to Physician [CONS] Routine Comment: Consulting Provider: Dany Goodman Reason For Exam: Physician to Consult Medical - DS: Meds - Discharge Medications Prescriptions: Lidocaine [Lidoderm] 1 patch TOPICAL HS #7 patch Prescription Printed oxyCODONE HCL [Roxicodone] 2.5 mg PO Q4-6HP PRN #10 tab PRN Reason: Per Pain Protocol Prescription Printed traMADol [Ultram] 50 mg PO Q4HP PRN #20 tab PRN Reason: Pain Level 1-3 Prescription Printed Active and Home Medications: Home Medications apixaban 2.5 mg tablet 2.5 mg PO BID 05/28/18 [History Confirmed 04/07/20 Last Taken Unknown] metoprolol tartrate 50 mg tablet 50 mg PO BID 05/28/18 [History Confirmed 04/07/20 Last Taken Unknown] cholecalciferol (vitamin D3) 50 mcg (2,000 unit) capsule 2,000 unit PO QDAY #90 cap 03/15/19 [Rx Confirmed 04/07/20 Last Taken Unknown] chlorthalidone 25 mg tablet 25 mg PO QDAY #90 tab 09/19/19 [Rx Confirmed 04/07/20 Last Taken Unknown] furosemide 20 mg tablet 20 mg PO QDAY PRN #90 tab 09/19/19 [History Confirmed 04/07/20 Last Taken Unknown] potassium chloride 10 mEq tablet,extended release 10 meq PO QDAY PRN #90 tab 09/19/19 [History Confirmed 04/07/20 Last Taken Unknown] Albuterol Sulfate [Ventolin] 2 puff INH Q4HP PRN #1 inhaler 01/30/20 [Rx Confirmed 04/07/20 Last Taken Unknown] fluoxetine 20 mg capsule 40 mg PO QDAY #60 cap 03/16/20 [Rx Confirmed 04/07/20 Last Taken Unknown] Diltiazem HCl [Diltiazem 24Hr Cd] 120 mg PO BID 04/07/20 [History Confirmed 04/07/20 Last Taken Unknown] Acetaminophen [Tylenol] 650 mg PO Q4-6HP PRN tab 04/09/20 [Rx Last Taken Unknown] Bisacodyl [Dulcolax] 10 mg CO Q2-3DAYS PRN supp.rect 04/09/20 [Rx Last Taken Unknown] Lidocaine [Lidoderm] 1 patch TOPICAL HS #7 patch 04/09/20 [Rx Last Taken Unknown] oxyCODONE HCL [Roxicodone] 2.5 mg PO Q4-6HP PRN #10 tab 04/09/20 [Rx Last Taken Unknown] traMADol [Ultram] 50 mg PO Q4HP PRN #20 tab 04/09/20 [Rx Last Taken Unknown] Medical - DS: Hosp Hospital Course: Discharge diagnosis * Intractable lower back - pain secondary to L4-L5 compression fracture with severe spinal stenosis. Clinically improved on opioids/acetaminophen/local lidocaine patches and physical therapy. Discharging to SNF for continued therapies * Severe weakness and falls-continue directed therapies at SNF * Constipation -resolved with laxatives. Continue stool softeners * Intractable nausea vomiting secondary abdominal pain/constipation. Resolved * History of chronic atrial fibrillation currently rate controlled on metoprolol. Anticoagulation on apixaban. * Hypertension continue diltiazem/metoprolol/chlorthalidone. Suboptimally controlled however dose needs to be uptitrated by primary care physician gradually to affect. Systolic currently around 150s * Anxiety/depressive disorder continue fluoxetine * History of CVA currently on anticoagulation on apixaban Brief hospital course Ms. Tuttle is a 84 year old F presents to the ER with worsening lower back pain/abdominal pain following a fall roughly a week ago. Patient apparently bumped into the kitchen counter and fell on hard surface sustaining back injury. She denied associated chest palpitations/lightheadedness dizziness or seizure- like episode. She denies associated loss of consciousness or neurological changes or incontinence or unilateral weakness. She continued to work with the symptoms including application of local pain medication, used narcotics from a friend with minimal relief. She now presents with worsening pain, constipation and associated nausea and loss of appetite Initial work-up in the ER was consistent with L4-5 compression fracture with severe spinal stenosis however no evidence of neurological compromise. Subsequently hospital service was consulted while patient will require to un dergo physical therapy and transition to care facility being coordinated by case management. At the time evaluation patient is alert and oriented. She was able to answer most of the questions or provide history as above. She denies fever, diarrhea, dysuria, rash. She denies changes in medications 04/08-patient doing well. No overnight events. No concerns per staff. No fever chills nausea vomiting. Large BM today. Pain improved. Continuing opioids/Tylenol. Transitioning to SNF in 24 hours. Continue PT OT. 04/09-nursing staff expressed concerns about patient's behavior and suicidal id eation. Q was consulted. Discharge delayed. Following Q evaluation patient was cleared. No overnight events. Pain in good control. Will likely transfer to SNF in 24 hours 04/10-patient clinically improved. However SNF wants to wait until Monday in light of Q evaluation and concerns of patient's suicidal ideation. Patient will be monitored in the hospital through the weekend. No other events. Pain good control. 04/11-patient doing well. No overnight events. No concerns per staff. No fever chills nausea vomiting. No pain. Denies suicidal ideation. Breakfast. Slept well. Back pain much improved. Anticipate SNF transfer in 48 hours 04/12 patient doing well. No overnight events. No concerns per staff.-No suicidal ideation. Back pain much improved. Tolerating diet and therapies. No anxiety. Await discharge to SNF in 24 hours 04/13-patient doing a lot better. No overnight events. Back pain much improved. Tolerating diet. Intermittent nausea. Stable hemodynamics and labs. Discharging to SNF for continued posthospitalization rehab. Discharge diagnosis: . - Time Spent with Patient Total time spent providing and/or coordinating discharge services: Greater than 30 minutes Medical - DS: Exam - Constitutional Vitals: Vital Signs Temp Pulse Resp BP Pulse Ox 04/09/20 08:00 98.3 F 74 18 185/72 93 04/09/20 04:00 97.9 F 82 16 134/85 97 04/08/20 22:28 98.3 F 89 16 139/76 91 04/08/20 20:00 95 04/08/20 19:03 97.8 F 85 16 144/75 95 04/08/20 16:42 99.5 F H 68 16 139/70 91 04/08/20 15:54 98.0 F 75 16 146/78 92 04/08/20 14:36 98.3 F 47 L 18 137/52 97 04/08/20 12:00 97.4 F 70 18 115/66 91 Intake and Output 04/08/20 04/09/20 04/09/20 21:59 05:59 13:59 Intake Total 400 865 240 Output Total 200 452 350 Balance 200 413 -110 Intake: IV 65 Oral 400 800 240 Output: Void Amount 200 450 350 # of times incontinent of urine 2 Other: Meal Breakfast Percent of Meal Consumed 50% Feeding Ability Independent Urine Appearance Clear Clear Urine Color Dark Yellow Bright Yellow Bright Yellow Urine Odor Normal Strong Normal # Voids 1 1 Weight 169 lb 8 oz Medical - DS: Data Labs on day of discharge: Labs from last 24 hours 04/09/20 04/09/20 05:25 05:25 WBC 6.6 RBC 3.92 Hgb 11.2 Hct 34.9 MCV 89.0 MCH 28.6 MCHC 32.1 RDW 14.0 Plt Count 220 MPV 9.7 Total Counted 100 Seg Neutrophils % 67 Band Neutrophils % Not Reportable Lymphocytes % 16 Monocytes % (Manual) 9 Eosinophils % (Manual) 8 H Platelet Estimate Normal RBC Morphology Normal Sodium 137 Potassium 3.9 Chloride 100 Carbon Dioxide 25 Anion Gap 12.0 BUN 27 H Creatinine 1.1 GFR Calculation 45 Glucose 98 Uric Acid 6.4 Calcium 8.3 L Phosphorus 2.8 Magnesium 2.1 Total Bilirubin 0.5 Direct Bilirubin < 0.2 GGT 270 H AST 34 ALT 26 Alkaline Phosphatase 217 H Lactate Dehydrogenase 199 Total Protein 6.0 Albumin 3.3 Globulin 2.7 Albumin/Globulin Ratio 1.2 Triglycerides 120 Medical - DS: A/P - Patient/Caregiver Discharge Instructions Activity: as per physical therapy, increase activity as tolerated Diet: Regular Diet Additional Instructions: Follow-up PCP in 5 days. Hospitalist recommends SNF physician to check CBC, BMP, UA as a posthospital follow-up in 1 week. Continue regular diet and increase activity as advised and tolerated. All meals in chair, sitting upright at 90 degrees, to prevent aspiration. High protein calorie supplements. Continue aggressive bowel regimen to prevent constipation. Continue fall precautions. Continue aggressive PT and OT evaluation and treatment at [facility]. ST eval and treatment if indicated. Discuss importance of medication adherence. Please review medication list with patient prior to discharge. Return to ER if worsening back pain, fever chills shortness of breath. Prescriptions: Lidocaine [Lidoderm] 1 patch TOPICAL HS #7 patch Prescription Printed oxyCODONE HCL [Roxicodone] 2.5 mg PO Q4-6HP PRN #10 tab PRN Reason: Per Pain Protocol Prescription Printed traMADol [Ultram] 50 mg PO Q4HP PRN #20 tab PRN Reason: Pain Level 1-3 Prescription Printed Other Amb Orders: OT Discharge Order Location: None Selected Physical Therapy at Discharge - General Location: None Selected - Problem Maintenance (1) Lumbar pain Status: Acute - Follow up Plan Follow up with: Liam Nicholas ARNP [Primary Care Provider] - (Please call and schedule hospital follow up appointment to meet your transportation needs.) Disposition: Xfer SNF Care Plan Goals: This discharge packet is provided to you to help keep you informed about your care. We want to ensure you get everything you need when you go home. You will also be receiving a call from us in a few days to follow up with you and see how you are doing since your discharge. This gives us a chance to listen to any concerns you maybe experiencing since you were discharged or any additional needs you may have, as well as providing us feedback on your care experience. We strive to always provide excellent care and thank you for your feedback and for choosing [facility]. Prognosis: Fair Rehab Potential: Fair I certify that the patient requires SNF services: Yes Overall status at discharge: patient is progressing back to baseline Medical - DS: Qual - VTE Deep Vein Thrombosis/Pulmonary Embolism Present on Admission: No
[2020-04-09] MEDS: SENNOSIDES/DOCUSATE SODIUM 1 TAB TABLET PO SCH (20:01)
[2020-04-09] MEDS: LIDOCAINE PATCH TOPICAL SCH ×2 (20:02→20:10)
[2020-04-09] MEDS: MELATONIN 3 MG TABLET PO PRN (21:40)
[2020-04-10] MEDS: ACETAMINOPHEN 325 MG TABLET PO PRN ×2 (00:15→16:21)
[2020-04-10] MEDS: traMADol 50 MG TABLET PO PRN ×4 (01:42→18:48)
[2020-04-10] MEDS: hydrALAZINE 20 MG/ML VIAL IV PRN ×2 (02:58→12:07)
[2020-04-10] MEDS: 0.9 % SODIUM CHLORIDE 10 ML SYRINGE IV SCH ×3 (03:00→20:59)
[2020-04-10 06:39] LABS: Hematocrit 36.7 % (34.1-44.9); Hemoglobin 12.3 g/dL (11.2-15.7); Mean Cell Volume 86.8 fL (80.0-100.0); Mean Corpuscular HGB Conc 33.5 g/dL (31.0-36.0); Mean Platelet Volume 9.7 fL (7.4-10.4); Platelet Count 260 K/mcL (140-440); RBC 4.23 M/mcL (3.59-5.38); Red Cell Distribution Width 13.7 % (11.5-14.5)
[2020-04-10 07:00] LABS: Bilirubin,Direct < 0.2 mg/dL (0.0-0.3); Chloride 99 mmol/L (96-108)
[2020-04-10 07:01] LABS: ALT/SGPT 23 U/l (0-40); AST/SGOT 30 U/l (0-37); Albumin 3.2 gm/dL (3.2-5.2); Alkaline Phosphatase 191 U/L (39-117); Bilirubin,Total 0.7 mg/dL (0.0-1.0); Blood Urea Nitrogen 17 mg/dl (8-23); Calcium 8.7 mg/dl (8.6-10.4); Carbon Dioxide 23 mmol/L (22-30); Globulin 3.3 gm/dL (2.2-3.7); Glomerular Filtration Rate 51; Glucose 113 mg/dL (70-105); Lactate Dehydrogenase 235 U/L (94-250); Phosphorous 2.7 mg/dL (2.7-4.5); Triglycerides 148 mg/dl (<150); Uric Acid 6.6 mg/dL (2.5-8.0)
[2020-04-10 07:17] LABS: Eosinophils % (Manual) 1 % (0-7); Lymphocytes % 9 % (15-49); Monocytes % (Manual) 6 % (1-12); Platelet Estimate NORMAL (NORMAL); RBC Morphology NORMAL (NORMAL); Segmented Neutrophils % 84 % (38-78)
[2020-04-10] MEDS: FLUoxetine HCL 20 MG CAPSULE PO SCH (08:05)
[2020-04-10] MEDS: VITAMIN D3 1,000 UNIT TABLET PO SCH (08:05)
[2020-04-10] MEDS: METOPROLOL TARTRATE 50 MG TABLET PO SCH ×2 (08:06→21:00)
[2020-04-10] MEDS: APIXABAN 2.5 MG TABLET PO SCH ×2 (08:06→20:59)
[2020-04-10] MEDS: DOCUSATE SODIUM 100 MG CAPSULE PO SCH ×2 (08:06→21:00)
[2020-04-10] MEDS: POLYETHYLENE GLYCOL 3350 17 GM PACKET PO PRN (08:06)
[2020-04-10] MEDS: DILTIAZEM 120 MG CAP.XL.24H PO SCH ×2 (08:06→20:59)
[2020-04-10] MEDS: MULTIVIT,THER IRON,CA,FA & MIN 1 TABLET PO SCH (08:11)
[2020-04-10] MEDS: CHLORTHALIDONE 25 MG TABLET PO SCH (08:11)
--- NOTE | 2020-04-10 09:12 | Internal Med Progress Note ---
Medical - PN: Subj Patient information: Note initiated : 04/09/20 at 9:10 am Service Date, if different from initiated Date: [] Patient: Nelly Tuttle 84 y/o F admitted on 04/07/20 for weakness, nausea. Chief Complaint: [] Interval history: Ms. Tuttle is a 84 year old F presents to the ER with worsening lower back dionte n/abdominal pain following a fall roughly a week ago. Patient apparently bumped into the kitchen counter and fell on hard surface sustaining back injury. She denied associated chest palpitations/lightheadedness dizziness or seizure-like episode. She denies associated loss of consciousness or neurological changes or incontinence or unilateral weakness. She continued to work with the symptoms including application of local pain medication, used narcotics from a friend with minimal relief. She now presents with worsening pain, constipation and associated nausea and loss of appetite Initial work-up in the ER was consistent with L4-5 compression fracture with severe spinal stenosis however no evidence of neurological compromise. Subsequently hospital service was consulted while patient will require to undergo physical therapy and transition to care facility being coordinated by case management. At the time evaluation patient is alert and oriented. She was able to answer most of the questions or provide history as above. She denies fever, diarrhea, dysuria, rash. She denies changes in medications 04/08-patient doing well. No overnight events. No concerns per staff. No fever chills nausea vomiting. Large BM today. Pain improved. Continuing opioids/Tylenol. Transitioning to SNF in 24 hours. Continue PT OT. 04/09-nursing staff expressed concerns about patient's behavior and suicidal ideation. Q was consulted. Discharge delayed. Following Q evaluation patient was cleared. No overnight events. Pain in good control. Will likely transfer to SNF in 24 hours - Constitutional Vitals: Vital Signs Temp Pulse Resp BP Pulse Ox 97.9 F 79 14 134/78 96 04/10/20 06:53 04/10/20 06:53 04/10/20 06:53 04/10/20 06:53 04/10/20 06:53 Period Temp Pulse Resp BP Sys/Espinoza Pulse Ox Last 24 Hr 97.7 F-98.2 F 77-84 - 134-198/78-91 92-96 Intake and Output 04/09/20 04/10/20 04/10/20 21:59 05:59 13:59 Intake Total 475 500 820 Output Total 1000 475 250 Balance -525 25 570 Weight 164 lb 8 oz Intake & Output: Intake & Output 04/09/20 04/10/20 04/10/20 21:59 05:59 13:59 Intake Total 475 500 820 Output Total 1000 475 250 Balance -525 25 570 Weight 164 lb 8 oz Intake: Oral 475 500 820 Output: Void Amount 1000 475 250 Other: Meal Breakfast Percent of Meal Consumed 25% Feeding Ability Independent Urine Appearance Clear Clear Urine Color Bright Yellow Bright Yellow Dark Yellow Urine Odor Normal Normal Medical - PN: Obj Da - Labs CBC & Chem 7: 04/10/20 05:15 04/10/20 05:15 Labs: Abnormal Lab Results 04/10/20 04/10/20 04/09/20 05:15 05:15 05:25 Lymph % (Auto) Lymph # (Auto) Seg Neutrophils % 84 H Lymphocytes % 9 L Eosinophils % (Manual) BUN 27 H Glucose 113 H Calcium 8.3 L GGT 233 H 270 H Alkaline Phosphatase 191 H 217 H C-Reactive Protein Prealbumin TSH Urine Ketones Urine Occult Blood 04/09/20 04/08/20 04/07/20 05:25 05:25 12:08 Lymph % (Auto) Lymph # (Auto) Seg Neutrophils % Lymphocytes % Eosinophils % (Manual) 8 H BUN 26 H Glucose Calcium 8.3 L GGT 203 H Alkaline Phosphatase 174 H C-Reactive Protein Prealbumin TSH Urine Ketones 5/tr A Urine Occult Blood 0.03 A 04/07/20 04/07/20 11:37 11:36 Lymph % (Auto) 11.6 L Lymph # (Auto) 0.71 L Seg Neutrophils % Lymphocytes % Eosinophils % (Manual) BUN Glucose 108 H Calcium GGT Alkaline Phosphatase C-Reactive Protein 5.3 H Prealbumin 14.5 L TSH 5.69 H Urine Ketones Urine Occult Blood Meds: Medications Acetaminophen (Tylenol) 650 mg PO Q4-6HP PRN; Protocol PRN Reason: Per Pain Protocol/Fever > 101 Last Admin: 04/10/20 00:15 Dose: 650 mg Documented by: Albuterol Sulfate (Ventolin) 2 puff INH Q4HP PRN PRN Reason: short of breath, cough, wheeze Apixaban (Eliquis) 2.5 mg PO BID [facility] Last Admin: 04/10/20 08:06 Dose: 2.5 mg Documented by: Bisacodyl (Dulcolax) 10 mg [place] Q2-3DAYS PRN PRN Reason: Constipation Chlorthalidone (Hygroton) 25 mg PO QDAY [facility] Last Admin: 04/10/20 08:11 Dose: 25 mg Documented by: Diltiazem HCl (Cardizem Sr) 120 mg PO BID [facility] Last Admin: 04/10/20 08:06 Dose: 120 mg Documented by: Docusate Sodium (Colace) 100 mg PO BID [facility] Last Admin: 04/10/20 08:06 Dose: 100 mg Documented by: Fluoxetine HCl (Prozac) 40 mg PO QDAY [facility] Last Admin: 04/10/20 08:05 Dose: 40 mg Documented by: Furosemide (Lasix) 20 mg PO DAILYP PRN PRN Reason: edema Hydralazine HCl (Apresoline) 10 mg IV Q6HP PRN PRN Reason: Hypertension Last Admin: 04/10/20 02:58 Dose: 10 mg Documented by: Hydromorphone HCl (Dilaudid) 0 mg IV Q4HP PRN; Protocol PRN Reason: Per Pain Protocol Last Admin: 04/08/20 19:03 Dose: 0.5 mg Documented by: Acetaminophen (Ofirmev) 650 mg in 65 mls @ 130 mls/hr IV Q6HP PRN; Protocol PRN Reason: Per Pain Protocol/Fever > 101 Last Infusion: 04/09/20 00:03 Dose: Infused Documented by: Magnesium Sulfate (Magnesium Sulfate) 2 gm in 50 mls @ 50 mls/hr IV UD PRN PRN Reason: MG = or < 1.7 Iron Carb/Multivit/[place]/Folic Acid (Multivitamin W/Minerals) 1 tab PO DAILY [facility] Last Admin: 04/10/20 08:11 Dose: 1 tab Documented by: Lidocaine (Lidoderm) 1 patch TOPICAL HS [facility] Last Admin: 04/09/20 20:10 Dose: 1 patch Documented by: Magnesium Hydroxide (Milk Of Magnesia) 30 ml PO HSP PRN PRN Reason: Constipation Melatonin (Melatonin 3mg Tablet) 3 mg PO HSP PRN PRN Reason: Insomnia Last Admin: 04/09/20 21:40 Dose: 3 mg Documented by: Metoprolol Tartrate (Lopressor) 50 mg PO BID [facility] Last Admin: 04/10/20 08:06 Dose: 50 mg Documented by: Ondansetron HCl (Zofran Odt) 4 mg SL Q4-6HP PRN; Protocol PRN Reason: Nausea And Vomiting Last Admin: 04/10/20 03:44 Dose: 4 mg Documented by: Ondansetron HCl (Zofran) 4 mg IV Q4-6HP PRN; Protocol PRN Reason: Nausea And Vomiting Oxycodone HCl (Roxicodone) 2.5 mg PO Q4-6HP PRN; Protocol PRN Reason: Per Pain Protocol Polyethylene Glycol (Miralax) 17 gm PO DAILYP PRN PRN Reason: Constipation Last Admin: 04/10/20 08:06 Dose: 17 gm Documented by: Potassium Chloride (Klor-Con) 40 meq PO DAILYP PRN PRN Reason: K+ < 3.5 Potassium Chloride (Kdur) 10 meq PO DAILYP PRN PRN Reason: WHEN TAKES FUROSEMIDE Senna/Docusate Sodium (Senna Plus Tablet) 1 tab PO HS [facility] Last Admin: 04/09/20 20:01 Dose: 1 tab Documented by: Sodium Chloride (Saline Flush) 10 ml IV Q8 [facility] Last Admin: 04/10/20 03:00 Dose: 10 ml Documented by: Tramadol HCl (Ultram) 50 mg PO Q4HP PRN PRN Reason: Pain Level 1-3 Last Admin: 04/10/20 01:42 Dose: 50 mg Documented by: Vitamin D (Vitamin D3) 2,000 unit PO DAILY [facility] Last Admin: 04/10/20 08:05 Dose: 2,000 unit Documented by: Medical - PN: A/P - Time Spent With Patient Total time spent is greater than 50% in coordination of care (as documented) at patient's floor/unit and/or counseling patient: 15 - 24 minutes (1) Lumbar pain Status: Acute Assessment and plan: * Intractable lower back - pain secondary to L4-L5 compression fracture with severe spinal stenosis. Start opioids/acetaminophen/local lidocaine patches and physical therapy * Severe weakness and falls-physical therapy/gait and safety eval/directed th erapies. * Suicidal ideation-Q consulted. Patient cleared by mental health services. Does not demonstrate immediate threat to self or others * Constipation -resolved with stool softeners * Intractable nausea vomiting secondary abdominal pain/constipation. Clinically resolved. * History of chronic atrial fibrillation currently rate controlled. Anticoagulation on apixaban. * Hypertension continue diltiazem/metoprolol/chlorthalidone * Anxiety/depressive disorder continue fluoxetine. No active suicidal ideation * History of CVA currently on anticoagulation on apixaban * Full code Plan * Continue pain management * Pre-existing medical condition management home meds * PT OT/nutrition support * SNF discharge coordination Current Visit: Yes Medical - PN: Qual - VTE Deep Vein Thrombosis/Pulmonary Embolism Present on Admission: No
--- NOTE | 2020-04-10 16:05 | Internal Med Progress Note ---
Medical - PN: Subj Patient information: Note initiated : 04/10/20 at 4:01 pm Service Date, if different from initiated Date: [] Patient: Nelly Tuttle 84 y/o F admitted on 04/07/20 for weakness, nausea. Chief Complaint: [] Interval history: Ms. Tuttle is a 84 year old F presents to the ER with worsening lower back dionte n/abdominal pain following a fall roughly a week ago. Patient apparently bumped into the kitchen counter and fell on hard surface sustaining back injury. She denied associated chest palpitations/lightheadedness dizziness or seizure-like episode. She denies associated loss of consciousness or neurological changes or incontinence or unilateral weakness. She continued to work with the symptoms including application of local pain medication, used narcotics from a friend with minimal relief. She now presents with worsening pain, constipation and associated nausea and loss of appetite Initial work-up in the ER was consistent with L4-5 compression fracture with severe spinal stenosis however no evidence of neurological compromise. Subsequently hospital service was consulted while patient will require to undergo physical therapy and transition to care facility being coordinated by case management. At the time evaluation patient is alert and oriented. She was able to answer most of the questions or provide history as above. She denies fever, diarrhea, dysuria, rash. She denies changes in medications 04/08-patient doing well. No overnight events. No concerns per staff. No fever chills nausea vomiting. Large BM today. Pain improved. Continuing opioids/Tylenol. Transitioning to SNF in 24 hours. Continue PT OT. 04/09-nursing staff expressed concerns about patient's behavior and suicidal ideation. Q was consulted. Discharge delayed. Following Q evaluation patient was cleared. No overnight events. Pain in good control. Will likely transfer to SNF in 24 hours 04/10-patient clinically improved. However SNF wants to wait until Monday in light of Q evaluation and concerns of patient's suicidal ideation. Patient will be monitored in the hospital through the weekend. No other events. Pain good control. - Constitutional Vitals: Vital Signs Temp Pulse Resp BP Pulse Ox 98.1 F 75 18 160/82 96 04/10/20 12:00 04/10/20 12:00 04/10/20 12:00 04/10/20 12:00 04/10/20 12:00 Period Temp Pulse Resp BP Sys/Espinoza Pulse Ox Last 24 Hr 97.9 F-98.2 F 75-81 14-20 134-198/78-91 92-96 Intake and Output 04/10/20 04/10/20 04/10/20 05:59 13:59 21:59 Intake Total 500 820 240 Output Total 475 600 300 Balance 25 220 -60 Weight 164 lb 8 oz Patient Weight 04/11/20 05:59 Weight 164 lb 8 oz Intake & Output: Intake & Output 04/10/20 04/10/20 04/10/20 05:59 13:59 21:59 Intake Total 500 820 240 Output Total 475 600 300 Balance 25 220 -60 Weight 164 lb 8 oz Intake: Oral 500 820 240 Output: Void Amount 475 600 300 Other: Meal Breakfast Percent of Meal Consumed 25% Feeding Ability Independent Urine Appearance Clear Clear Urine Color Bright Yellow Straw Dark Yellow Urine Odor Normal Normal General appearance: no acute distress Exam: Alert oriented Nonlabored breathing No anxiety Nonsuicidal Improved back pain Medical - PN: Obj Da - Labs CBC & Chem 7: 04/10/20 05:15 04/10/20 05:15 Labs: Abnormal Lab Results 04/10/20 04/10/20 04/09/20 05:15 05:15 05:25 Seg Neutrophils % 84 H Lymphocytes % 9 L Eosinophils % (Manual) BUN 27 H Glucose 113 H Calcium 8.3 L GGT 233 H 270 H Alkaline Phosphatase 191 H 217 H 04/09/20 04/08/20 05:25 05:25 Seg Neutrophils % Lymphocytes % Eosinophils % (Manual) 8 H BUN 26 H Glucose Calcium 8.3 L GGT 203 H Alkaline Phosphatase 174 H Meds: Medications Acetaminophen (Tylenol) 650 mg PO Q4-6HP PRN; Protocol PRN Reason: Per Pain Protocol/Fever > 101 Last Admin: 04/10/20 00:15 Dose: 650 mg Documented by: Albuterol Sulfate (Ventolin) 2 puff INH Q4HP PRN PRN Reason: short of breath, cough, wheeze Apixaban (Eliquis) 2.5 mg PO BID [facility] Last Admin: 04/10/20 08:06 Dose: 2.5 mg Documented by: Bisacodyl (Dulcolax) 10 mg [place] Q2-3DAYS PRN PRN Reason: Constipation Chlorthalidone (Hygroton) 25 mg PO QDAY [facility] Last Admin: 04/10/20 08:11 Dose: 25 mg Documented by: Diltiazem HCl (Cardizem Sr) 120 mg PO BID [facility] Last Admin: 04/10/20 08:06 Dose: 120 mg Documented by: Docusate Sodium (Colace) 100 mg PO BID [facility] Last Admin: 04/10/20 08:06 Dose: 100 mg Documented by: Fluoxetine HCl (Prozac) 40 mg PO QDAY [facility] Last Admin: 04/10/20 08:05 Dose: 40 mg Documented by: Furosemide (Lasix) 20 mg PO DAILYP PRN PRN Reason: edema Hydralazine HCl (Apresoline) 10 mg IV Q6HP PRN PRN Reason: Hypertension Last Admin: 04/10/20 12:07 Dose: 10 mg Documented by: Hydromorphone HCl (Dilaudid) 0 mg IV Q4HP PRN; Protocol PRN Reason: Per Pain Protocol Last Admin: 04/08/20 19:03 Dose: 0.5 mg Documented by: Acetaminophen (Ofirmev) 650 mg in 65 mls @ 130 mls/hr IV Q6HP PRN; Protocol PRN Reason: Per Pain Protocol/Fever > 101 Last Infusion: 04/09/20 00:03 Dose: Infused Documented by: Magnesium Sulfate (Magnesium Sulfate) 2 gm in 50 mls @ 50 mls/hr IV UD PRN PRN Reason: MG = or < 1.7 Iron Carb/Multivit/[place]/Folic Acid (Multivitamin W/Minerals) 1 tab PO DAILY [facility] Last Admin: 04/10/20 08:11 Dose: 1 tab Documented by: Lidocaine (Lidoderm) 1 patch [facility] Last Admin: 04/09/20 20:10 Dose: 1 patch Documented by: Magnesium Hydroxide (Milk Of Magnesia) 30 ml PO HSP PRN PRN Reason: Constipation Melatonin (Melatonin 3mg Tablet) 3 mg PO HSP PRN PRN Reason: Insomnia Last Admin: 04/09/20 21:40 Dose: 3 mg Documented by: Metoprolol Tartrate (Lopressor) 50 mg PO BID [facility] Last Admin: 04/10/20 08:06 Dose: 50 mg Documented by: Ondansetron HCl (Zofran Odt) 4 mg SL Q4-6HP PRN; Protocol PRN Reason: Nausea And Vomiting Last Admin: 04/10/20 03:44 Dose: 4 mg Documented by: Ondansetron HCl (Zofran) 4 mg IV Q4-6HP PRN; Protocol PRN Reason: Nausea And Vomiting Oxycodone HCl (Roxicodone) 2.5 mg PO Q4-6HP PRN; Protocol PRN Reason: Per Pain Protocol Polyethylene Glycol (Miralax) 17 gm PO DAILYP PRN PRN Reason: Constipation Last Admin: 04/10/20 08:06 Dose: 17 gm Documented by: Potassium Chloride (Klor-Con) 40 meq PO DAILYP PRN PRN Reason: K+ < 3.5 Potassium Chloride (Kdur) 10 meq PO DAILYP PRN PRN Reason: WHEN TAKES FUROSEMIDE Senna/Docusate Sodium (Senna Plus Tablet) 1 tab PO HS [facility] Last Admin: 04/09/20 20:01 Dose: 1 tab Documented by: Sodium Chloride (Saline Flush) 10 ml IV Q8 [facility] Last Admin: 04/10/20 13:36 Dose: 10 ml Documented by: Tramadol HCl (Ultram) 50 mg PO Q4HP PRN PRN Reason: Pain Level 1-3 Last Admin: 04/10/20 14:24 Dose: 50 mg Documented by: Vitamin D (Vitamin D3) 2,000 unit PO DAILY [facility] Last Admin: 04/10/20 08:05 Dose: 2,000 unit Documented by: Medical - PN: A/P - Time Spent With Patient Total time spent is greater than 50% in coordination of care (as documented) at patient's floor/unit and/or counseling patient: 15 - 24 minutes (1) Lumbar pain Status: Acute Assessment and plan: * Intractable lower back -much improved. Pain secondary to L4-L5 compression fracture with severe spinal stenosis. Continue opioids/acetaminophen/local lidocaine patches and directed physical therapy * Severe weakness and falls-ongoing treatment for gait and safety eval * Suicidal ideation-Q consulted. Patient cleared by mental health services. Does not demonstrate immediate threat to self or others * Constipation -resolved with stool softeners * Intractable nausea vomiting secondary abdominal pain/constipation. Clinically resolved. * History of chronic atrial fibrillation currently rate controlled. Anticoagulation on apixaban. * Hypertension continue diltiazem/metoprolol/chlorthalidone * Anxiety/depressive disorder continue fluoxetine. No active suicidal ideation * History of CVA currently on anticoagulation on apixaban * Full code Plan * Continue pain management * Pre-existing medical condition management home meds * PT OT/nutrition support * SNF discharge likely on Monday Current Visit: Yes Medical - PN: Qual - VTE Deep Vein Thrombosis/Pulmonary Embolism Present on Admission: No
[2020-04-10] MEDS: SENNOSIDES/DOCUSATE SODIUM 1 TAB TABLET PO SCH (21:00)
[2020-04-10] MEDS: MELATONIN 3 MG TABLET PO PRN (21:00)
[2020-04-10] MEDS: LIDOCAINE PATCH TOPICAL SCH (21:00)
[2020-04-11] MEDS: 0.9 % SODIUM CHLORIDE 10 ML SYRINGE IV SCH ×3 (05:37→20:25)
[2020-04-11 06:46] LABS: Hematocrit 36.5 % (34.1-44.9); Hemoglobin 11.6 g/dL (11.2-15.7); Mean Corpuscular HGB Conc 31.8 g/dL (31.0-36.0); Mean Platelet Volume 9.5 fL (7.4-10.4); Platelet Count 272 K/mcL (140-440); RBC 4.15 M/mcL (3.59-5.38); Red Cell Distribution Width 14.1 % (11.5-14.5); WBC 5.8 K/mcL (4.50-11.00)
[2020-04-11 07:05] LABS: ALT/SGPT 19 U/l (0-40); AST/SGOT 22 U/l (0-37); Albumin 3.1 gm/dL (3.2-5.2); Albumin/Globulin Ratio 1.1 (1.0-2.3); Alkaline Phosphatase 160 U/L (39-117); Bilirubin,Direct < 0.2 mg/dL (0.0-0.3); Bilirubin,Total 0.6 mg/dL (0.0-1.0); Blood Urea Nitrogen 15 mg/dl (8-23); Calcium 8.5 mg/dl (8.6-10.4); Carbon Dioxide 27 mmol/L (22-30); Chloride 97 mmol/L (96-108); Globulin 2.8 gm/dL (2.2-3.7); Glomerular Filtration Rate 45; Glucose 90 mg/dL (70-105); Lactate Dehydrogenase 174 U/L (94-250); Phosphorous 3.4 mg/dL (2.7-4.5); Triglycerides 91 mg/dl (<150); Uric Acid 6.7 mg/dL (2.5-8.0)
--- NOTE | 2020-04-11 08:00 | Internal Med Progress Note ---
Medical - PN: Subj Patient information: Note initiated : 04/11/20 at 7:58 am Service Date, if different from initiated Date: [] Patient: Nelly Tuttle 84 y/o F admitted on 04/07/20 for weakness, nausea. Chief Complaint: [] Interval history: Ms. Tuttle is a 84 year old F presents to the ER with worsening lower back dionte n/abdominal pain following a fall roughly a week ago. Patient apparently bumped into the kitchen counter and fell on hard surface sustaining back injury. She denied associated chest palpitations/lightheadedness dizziness or seizure-like episode. She denies associated loss of consciousness or neurological changes or incontinence or unilateral weakness. She continued to work with the symptoms including application of local pain medication, used narcotics from a friend with minimal relief. She now presents with worsening pain, constipation and associated nausea and loss of appetite Initial work-up in the ER was consistent with L4-5 compression fracture with severe spinal stenosis however no evidence of neurological compromise. Subsequently hospital service was consulted while patient will require to undergo physical therapy and transition to care facility being coordinated by case management. At the time evaluation patient is alert and oriented. She was able to answer most of the questions or provide history as above. She denies fever, diarrhea, dysuria, rash. She denies changes in medications 04/08-patient doing well. No overnight events. No concerns per staff. No fever chills nausea vomiting. Large BM today. Pain improved. Continuing opioids/Tylenol. Transitioning to SNF in 24 hours. Continue PT OT. 04/09-nursing staff expressed concerns about patient's behavior and suicidal ideation. [facility] was consulted. Discharge delayed. Following Q evaluation patient was cleared. No overnight events. Pain in good control. Will likely transfer to SNF in 24 hours 04/10-patient clinically improved. However SNF wants to wait until Monday in light of Q evaluation and concerns of patient's suicidal ideation. Patient will be monitored in the hospital through the weekend. No other events. Pain good control. 04/11-patient doing well. No overnight events. No concerns per staff. No fever chills nausea vomiting. No pain. Denies suicidal ideation. Breakfast. Slept well. Back pain much improved. Anticipate SNF transfer in 48 hours - Constitutional Vitals: Vital Signs Temp Pulse Resp BP Pulse Ox 98.1 F 72 18 141/76 92 04/11/20 06:50 04/11/20 06:50 04/11/20 06:50 04/11/20 06:50 04/11/20 06:50 Period Temp Pulse Resp BP Sys/Espinoza Pulse Ox Last 24 Hr 97.8 F-98.2 F 62-79 16-18 128-191/67-87 92-97 Intake and Output 04/10/20 04/11/20 04/11/20 21:59 05:59 13:59 Intake Total 640 200 Output Total 800 300 Balance -160 -100 Weight 168 lb 7 oz Intake & Output: Intake & Output 04/10/20 04/11/20 04/11/20 21:59 05:59 13:59 Intake Total 640 200 Output Total 800 300 Balance -160 -100 Weight 168 lb 7 oz Intake: Oral 640 200 Output: Void Amount 800 300 Other: Meal Nourishment/Supplement Percent of Meal Consumed 50% Urine Appearance Clear Clear Urine Color Bright Yellow Dark Yellow Urine Odor Normal General appearance: no acute distress Exam: Alert nonlabored breathing Nondistended abdomen No anxiety Able to bear weight Medical - PN: Obj Da - Labs CBC & Chem 7: 04/11/20 05:20 04/11/20 05:20 Labs: Abnormal Lab Results 04/11/20 04/10/20 04/10/20 05:20 05:15 05:15 Seg Neutrophils % 84 H Lymphocytes % 9 L Eosinophils % (Manual) BUN Glucose 113 H Calcium 8.5 L GGT 200 H 233 H Alkaline Phosphatase 160 H 191 H Albumin 3.1 L 04/09/20 04/09/20 04/08/20 05:25 05:25 05:25 Seg Neutrophils % Lymphocytes % Eosinophils % (Manual) 8 H BUN 27 H 26 H Glucose Calcium 8.3 L 8.3 L GGT 270 H 203 H Alkaline Phosphatase 217 H 174 H Albumin Meds: Medications Acetaminophen (Tylenol) 650 mg PO Q4-6HP PRN; Protocol PRN Reason: Per Pain Protocol/Fever > 101 Last Admin: 04/10/20 16:21 Dose: 650 mg Documented by: Albuterol Sulfate (Ventolin) 2 puff INH Q4HP PRN PRN Reason: short of breath, cough, wheeze Apixaban (Eliquis) 2.5 mg PO BID [facility] Last Admin: 04/10/20 20:59 Dose: 2.5 mg Documented by: Bisacodyl (Dulcolax) 10 mg [place] Q2-3DAYS PRN PRN Reason: Constipation Chlorthalidone (Hygroton) 25 mg PO QDAY [facility] Last Admin: 04/10/20 08:11 Dose: 25 mg Documented by: Diltiazem HCl (Cardizem Sr) 120 mg PO BID [facility] Last Admin: 04/10/20 20:59 Dose: 120 mg Documented by: Docusate Sodium (Colace) 100 mg PO BID [facility] Last Admin: 04/10/20 21:00 Dose: 100 mg Documented by: Fluoxetine HCl (Prozac) 40 mg PO QDAY [facility] Last Admin: 04/10/20 08:05 Dose: 40 mg Documented by: Furosemide (Lasix) 20 mg PO DAILYP PRN PRN Reason: edema Hydralazine HCl (Apresoline) 10 mg IV Q6HP PRN PRN Reason: Hypertension Last Admin: 04/10/20 12:07 Dose: 10 mg Documented by: Hydromorphone HCl (Dilaudid) 0 mg IV Q4HP PRN; Protocol PRN Reason: Per Pain Protocol Last Admin: 04/08/20 19:03 Dose: 0.5 mg Documented by: Acetaminophen (Ofirmev) 650 mg in 65 mls @ 130 mls/hr IV Q6HP PRN; Protocol PRN Reason: Per Pain Protocol/Fever > 101 Last Infusion: 04/09/20 00:03 Dose: Infused Documented by: Magnesium Sulfate (Magnesium Sulfate) 2 gm in 50 mls @ 50 mls/hr IV UD PRN PRN Reason: MG = or < 1.7 Iron Carb/Multivit/[place] [employer]/Folic Acid (Multivitamin W/Minerals) 1 tab PO DAILY [facility] Last Admin: 04/10/20 08:11 Dose: 1 tab Documented by: Lidocaine (Lidoderm) 1 patch TOPICAL HS [facility] Last Admin: 04/10/20 21:00 Dose: 1 patch Documented by: Magnesium Hydroxide (Milk Of Magnesia) 30 ml PO HSP PRN PRN Reason: Constipation Melatonin (Melatonin 3mg Tablet) 3 mg PO HSP PRN PRN Reason: Insomnia Last Admin: 04/10/20 21:00 Dose: 3 mg Documented by: Metoprolol Tartrate (Lopressor) 50 mg PO BID [facility] Last Admin: 04/10/20 21:00 Dose: 50 mg Documented by: Ondansetron HCl (Zofran Odt) 4 mg SL Q4-6HP PRN; Protocol PRN Reason: Nausea And Vomiting Last Admin: 04/10/20 03:44 Dose: 4 mg Documented by: Ondansetron HCl (Zofran) 4 mg IV Q4-6HP PRN; Protocol PRN Reason: Nausea And Vomiting Oxycodone HCl (Roxicodone) 2.5 mg PO Q4-6HP PRN; Protocol PRN Reason: Per Pain Protocol Polyethylene Glycol (Miralax) 17 gm PO DAILYP PRN PRN Reason: Constipation Last Admin: 04/10/20 08:06 Dose: 17 gm Documented by: Potassium Chloride (Klor-Con) 40 meq PO DAILYP PRN PRN Reason: K+ < 3.5 Potassium Chloride (Kdur) 10 meq PO DAILYP PRN PRN Reason: WHEN TAKES FUROSEMIDE Senna/Docusate Sodium (Senna Plus Tablet) 1 tab PO HS [facility] Last Admin: 04/10/20 21:00 Dose: 1 tab Documented by: Sodium Chloride (Saline Flush) 10 ml IV Q8 [facility] Last Admin: 04/11/20 05:37 Dose: 10 ml Documented by: Tramadol HCl (Ultram) 50 mg PO Q4HP PRN PRN Reason: Pain Level 1-3 Last Admin: 04/10/20 18:48 Dose: 50 mg Documented by: Vitamin D (Vitamin D3) 2,000 unit PO DAILY [facility] Last Admin: 04/10/20 08:05 Dose: 2,000 unit Documented by: Medical - PN: A/P - Time Spent With Patient Total time spent is greater than 50% in coordination of care (as documented) at patient's floor/unit and/or counseling patient: 15 - 24 minutes (1) Lumbar pain Status: Acute Assessment and plan: * Intractable lower back secondary to L4-L5 compression fracture with severe spinal stenosis. Clinically improved on opioids/acetaminophen/local lidocaine patches and directed physical therapy * Severe weakness and falls-ongoing PT OT for gait and safety eval * Suicidal ideation-clinically resolved. [facility] consulted. Patient cleared by mental health services. Does not demonstrate immediate threat to self or others. Will transfer to SNF in 48 hours * Constipation -resolved with stool softeners * History of chronic atrial fibrillation currently rate controlled. Anticoagulation on apixaban. * Hypertension continue diltiazem/metoprolol/chlorthalidone * Anxiety/depressive disorder continue fluoxetine. No active suicidal ideation * History of CVA currently on anticoagulation on apixaban * Full code Plan * Continue pain management * Pre-existing medical condition management home meds * PT OT/nutrition support * SNF discharge likely on Monday Current Visit: Yes Medical - PN: Qual - VTE Deep Vein Thrombosis/Pulmonary Embolism Present on Admission: No
[2020-04-11] MEDS: FLUoxetine HCL 20 MG CAPSULE PO SCH (08:16)
[2020-04-11] MEDS: DOCUSATE SODIUM 100 MG CAPSULE PO SCH ×2 (08:16→20:25)
[2020-04-11] MEDS: MULTIVIT,THER IRON,CA,FA & MIN 1 TABLET PO SCH (08:16)
[2020-04-11] MEDS: VITAMIN D3 1,000 UNIT TABLET PO SCH (08:16)
[2020-04-11] MEDS: METOPROLOL TARTRATE 50 MG TABLET PO SCH ×2 (08:16→20:25)
[2020-04-11] MEDS: DILTIAZEM 120 MG CAP.XL.24H PO SCH ×2 (08:16→20:25)
[2020-04-11] MEDS: APIXABAN 2.5 MG TABLET PO SCH ×2 (08:17→20:25)
[2020-04-11] MEDS: CHLORTHALIDONE 25 MG TABLET PO SCH (08:17)
[2020-04-11] MEDS: POLYETHYLENE GLYCOL 3350 17 GM PACKET PO PRN (08:17)
[2020-04-11 08:35] LABS: Eosinophils % (Manual) 1 % (0-7); Lymphocytes % 12 % (15-49); Monocytes % (Manual) 9 % (1-12); Platelet Estimate NORMAL (NORMAL); RBC Morphology NORMAL (NORMAL); Segmented Neutrophils % 78 % (38-78)
[2020-04-11] MEDS: traMADol 50 MG TABLET PO PRN ×3 (08:37→17:29)
[2020-04-11] MEDS: oxyCODONE HCL 5 MG TABLET PO PRN (20:24)
[2020-04-11] MEDS: MELATONIN 3 MG TABLET PO PRN (20:25)
[2020-04-11] MEDS: LIDOCAINE PATCH TOPICAL SCH (20:25)
[2020-04-11] MEDS: SENNOSIDES/DOCUSATE SODIUM 1 TAB TABLET PO SCH (20:25)
[2020-04-12] MEDS: 0.9 % SODIUM CHLORIDE 10 ML SYRINGE IV SCH ×3 (05:23→21:27)
[2020-04-12 06:12] LABS: Hematocrit 37.2 % (34.1-44.9); Mean Cell Volume 88.4 fL (80.0-100.0); Mean Corpuscular HGB Conc 32.3 g/dL (31.0-36.0); Mean Platelet Volume 9.5 fL (7.4-10.4); Platelet Count 288 K/mcL (140-440); RBC 4.21 M/mcL (3.59-5.38); WBC 6.2 K/mcL (4.50-11.00)
[2020-04-12 06:43] LABS: ALT/SGPT 17 U/l (0-40); AST/SGOT 21 U/l (0-37); Albumin 3.1 gm/dL (3.2-5.2); Alkaline Phosphatase 151 U/L (39-117); Bilirubin,Direct < 0.2 mg/dL (0.0-0.3); Bilirubin,Total 0.5 mg/dL (0.0-1.0); Blood Urea Nitrogen 16 mg/dl (8-23); Calcium 8.7 mg/dl (8.6-10.4); Carbon Dioxide 27 mmol/L (22-30); Chloride 96 mmol/L (96-108); Globulin 3.2 gm/dL (2.2-3.7); Glucose 102 mg/dL (70-105); Lactate Dehydrogenase 176 U/L (94-250); Phosphorous 3.5 mg/dL (2.7-4.5); Triglycerides 101 mg/dl (<150); Uric Acid 7.1 mg/dL (2.5-8.0)
[2020-04-12 06:44] LABS: Glomerular Filtration Rate 34
--- NOTE | 2020-04-12 07:08 | Internal Med Progress Note ---
Medical - PN: Subj Patient information: Note initiated : 04/12/20 at 7:07 am Service Date, if different from initiated Date: [] Patient: Nelly Tuttle 84 y/o F admitted on 04/07/20 for weakness, nausea. Chief Complaint: [] Interval history: Ms. Tuttle is a 84 year old F presents to the ER with worsening lower back dionte n/abdominal pain following a fall roughly a week ago. Patient apparently bumped into the kitchen counter and fell on hard surface sustaining back injury. She denied associated chest palpitations/lightheadedness dizziness or seizure-like episode. She denies associated loss of consciousness or neurological changes or incontinence or unilateral weakness. She continued to work with the symptoms including application of local pain medication, used narcotics from a friend with minimal relief. She now presents with worsening pain, constipation and associated nausea and loss of appetite Initial work-up in the ER was consistent with L4-5 compression fracture with severe spinal stenosis however no evidence of neurological compromise. Subsequently hospital service was consulted while patient will require to undergo physical therapy and transition to care facility being coordinated by case management. At the time evaluation patient is alert and oriented. She was able to answer most of the questions or provide history as above. She denies fever, diarrhea, dysuria, rash. She denies changes in medications 04/08-patient doing well. No overnight events. No concerns per staff. No fever chills nausea vomiting. Large BM today. Pain improved. Continuing opioids/Tylenol. Transitioning to SNF in 24 hours. Continue PT OT. 04/09-nursing staff expressed concerns about patient's behavior and suicidal ideation. [facility] was consulted. Discharge delayed. Following Q evaluation patient was cleared. No overnight events. Pain in good control. Will likely transfer to SNF in 24 hours 04/10-patient clinically improved. However SNF wants to wait until Monday in light of Q evaluation and concerns of patient's suicidal ideation. Patient will be monitored in the hospital through the weekend. No other events. Pain good control. 04/11-patient doing well. No overnight events. No concerns per staff. No fever chills nausea vomiting. No pain. Denies suicidal ideation. Breakfast. Slept well. Back pain much improved. Anticipate SNF transfer in 48 hours 04/12 patient doing well. No overnight events. No concerns per staff.-No suicidal ideation. Back pain much improved. Tolerating diet and therapies. No anxiety. Await discharge to SNF in 24 hours - Constitutional Vitals: Vital Signs Temp Pulse Resp BP Pulse Ox 97.3 F 64 16 149/83 93 04/12/20 03:21 04/12/20 03:21 04/12/20 03:21 04/12/20 03:21 04/12/20 03:21 Period Temp Pulse Resp BP Sys/Espinoza Pulse Ox Last 24 Hr 97.3 F-98.4 F 64-76 14-20 133-154/75-83 91-94 Intake and Output 04/11/20 04/12/20 04/12/20 21:59 05:59 13:59 Intake Total 50 200 Balance 50 200 Weight 167 lb Intake & Output: Intake & Output 04/11/20 04/12/20 04/12/20 21:59 05:59 13:59 Intake Total 50 200 Balance 50 200 Weight 167 lb Intake: Oral 50 200 Other: Meal Dinner Percent of Meal Consumed 50% Feeding Ability Independent Urine Color Pale Urine Odor Normal # Voids 1 1 Exam: Alert oriented Nonlabored breathing no anxiety To bear weight Medical - PN: Obj Da - Labs CBC & Chem 7: 04/12/20 05:15 04/12/20 05:15 Labs: Abnormal Lab Results 04/12/20 04/11/20 04/11/20 05:15 05:20 05:20 Seg Neutrophils % Lymphocytes % 12 L Eosinophils % (Manual) Creatinine 1.4 H Glucose Calcium 8.5 L GGT 179 H 200 H Alkaline Phosphatase 151 H 160 H Albumin 3.1 L 3.1 L 04/10/20 04/10/20 04/09/20 05:15 05:15 05:25 Seg Neutrophils % 84 H Lymphocytes % 9 L Eosinophils % (Manual) 8 H Creatinine Glucose 113 H Calcium GGT 233 H Alkaline Phosphatase 191 H Albumin Meds: Medications Acetaminophen (Tylenol) 650 mg PO Q4-6HP PRN; Protocol PRN Reason: Per Pain Protocol/Fever > 101 Last Admin: 04/10/20 16:21 Dose: 650 mg Documented by: Albuterol Sulfate (Ventolin) 2 puff INH Q4HP PRN PRN Reason: short of breath, cough, wheeze Apixaban (Eliquis) 2.5 mg PO BID [facility] Last Admin: 04/11/20 20:25 Dose: 2.5 mg Documented by: Bisacodyl (Dulcolax) 10 mg [place] Q2-3DAYS PRN PRN Reason: Constipation Chlorthalidone (Hygroton) 25 mg PO QDAY [facility] Last Admin: 04/11/20 08:17 Dose: 25 mg Documented by: Diltiazem HCl (Cardizem Sr) 120 mg PO BID [facility] Last Admin: 04/11/20 20:25 Dose: 120 mg Documented by: Docusate Sodium (Colace) 100 mg PO BID [facility] Last Admin: 04/11/20 20:25 Dose: 100 mg Documented by: Fluoxetine HCl (Prozac) 40 mg PO QDAY [facility] Last Admin: 04/11/20 08:16 Dose: 40 mg Documented by: Furosemide (Lasix) 20 mg PO DAILYP PRN PRN Reason: edema Hydralazine HCl (Apresoline) 10 mg IV Q6HP PRN PRN Reason: Hypertension Last Admin: 04/10/20 12:07 Dose: 10 mg Documented by: Hydromorphone HCl (Dilaudid) 0 mg IV Q4HP PRN; Protocol PRN Reason: Per Pain Protocol Last Admin: 04/08/20 19:03 Dose: 0.5 mg Documented by: Acetaminophen (Ofirmev) 650 mg in 65 mls @ 130 mls/hr IV Q6HP PRN; Protocol PRN Reason: Per Pain Protocol/Fever > 101 Last Infusion: 04/09/20 00:03 Dose: Infused Documented by: Magnesium Sulfate (Magnesium Sulfate) 2 gm in 50 mls @ 50 mls/hr IV UD PRN PRN Reason: MG = or < 1.7 Iron Carb/Multivit/[place]/Folic Acid (Multivitamin W/Minerals) 1 tab PO DAILY [facility] Last Admin: 04/11/20 08:16 Dose: 1 tab Documented by: Lidocaine (Lidoderm) 1 patch TOPICAL HS [facility] Last Admin: 04/11/20 20:25 Dose: 1 patch Documented by: Magnesium Hydroxide (Milk Of Magnesia) 30 ml PO HSP PRN PRN Reason: Constipation Melatonin (Melatonin 3mg Tablet) 3 mg PO HSP PRN PRN Reason: Insomnia Last Admin: 04/11/20 20:25 Dose: 3 mg Documented by: Metoprolol Tartrate (Lopressor) 50 mg PO BID [facility] Last Admin: 04/11/20 20:25 Dose: 50 mg Documented by: Ondansetron HCl (Zofran Odt) 4 mg SL Q4-6HP PRN; Protocol PRN Reason: Nausea And Vomiting Last Admin: 04/10/20 03:44 Dose: 4 mg Documented by: Ondansetron HCl (Zofran) 4 mg IV Q4-6HP PRN; Protocol PRN Reason: Nausea And Vomiting Oxycodone HCl (Roxicodone) 2.5 mg PO Q4-6HP PRN; Protocol PRN Reason: Per Pain Protocol Last Admin: 04/11/20 20:24 Dose: 2.5 mg Documented by: Polyethylene Glycol (Miralax) 17 gm PO DAILYP PRN PRN Reason: Constipation Last Admin: 04/11/20 08:17 Dose: 17 gm Documented by: Potassium Chloride (Klor-Con) 40 meq PO DAILYP PRN PRN Reason: K+ < 3.5 Potassium Chloride (Kdur) 10 meq PO DAILYP PRN PRN Reason: WHEN TAKES FUROSEMIDE Senna/Docusate Sodium (Senna Plus Tablet) 1 tab PO HS [facility] Last Admin: 04/11/20 20:25 Dose: 1 tab Documented by: Sodium Chloride (Saline Flush) 10 ml IV Q8 [facility] Last Admin: 04/12/20 05:23 Dose: 10 ml Documented by: Tramadol HCl (Ultram) 50 mg PO Q4HP PRN PRN Reason: Pain Level 1-3 Last Admin: 04/11/20 17:29 Dose: 50 mg Documented by: Vitamin D (Vitamin D3) 2,000 unit PO DAILY [facility] Last Admin: 04/11/20 08:16 Dose: 2,000 unit Documented by: Medical - PN: A/P - Time Spent With Patient Total time spent is greater than 50% in coordination of care (as documented) at patient's floor/unit and/or counseling patient: 15 - 24 minutes (1) Lumbar pain Status: Acute Assessment and plan: * Lower back pain secondary to L4-L5 compression fracture with severe spinal stenosis. Clinically stable on opioids/acetaminophen/local lidocaine patches and directed physical therapy. Await SNF transfer in 24 hours * Severe weakness and falls-continue PT assisted therapy/SNF transfer * Suicidal ideation-clinically resolved. [facility] reviewed and cleared for discharge patient cleared by mental health services. * Constipation -resolved with stool softeners * History of chronic atrial fibrillation currently rate controlled. Anticoagulation on apixaban. * Hypertension continue diltiazem/metoprolol/chlorthalidone * Anxiety/depressive disorder continue fluoxetine. No active suicidal ideation * History of CVA currently on anticoagulation on apixaban * Full code Plan * Continue pain management * Pre-existing medical condition management home meds * PT OT/nutrition support * SNF discharge in 24 hours Current Visit: Yes Medical - PN: Qual - VTE Deep Vein Thrombosis/Pulmonary Embolism Present on Admission: No
[2020-04-12 08:14] LABS: Basophils % (Manual) 1 % (0-2); Eosinophils % (Manual) 6 % (0-7); Lymphocytes % 18 % (15-49); Monocytes % (Manual) 8 % (1-12); Platelet Estimate NORMAL (NORMAL); RBC Morphology NORMAL (NORMAL); Reactive Lymphocytes 1 % (0-2); Segmented Neutrophils % 66 % (38-78)
[2020-04-12] MEDS: traMADol 50 MG TABLET PO PRN ×2 (09:02→16:02)
[2020-04-12] MEDS: METOPROLOL TARTRATE 50 MG TABLET PO SCH ×2 (09:03→21:25)
[2020-04-12] MEDS: MULTIVIT,THER IRON,CA,FA & MIN 1 TABLET PO SCH (09:03)
[2020-04-12] MEDS: DILTIAZEM 120 MG CAP.XL.24H PO SCH ×2 (09:03→21:26)
[2020-04-12] MEDS: APIXABAN 2.5 MG TABLET PO SCH (09:03)
[2020-04-12] MEDS: VITAMIN D3 1,000 UNIT TABLET PO SCH (09:03)
[2020-04-12] MEDS: DOCUSATE SODIUM 100 MG CAPSULE PO SCH ×2 (09:03→21:25)
[2020-04-12] MEDS: CHLORTHALIDONE 25 MG TABLET PO SCH (09:03)
[2020-04-12] MEDS: FLUoxetine HCL 20 MG CAPSULE PO SCH (09:03)
[2020-04-12] MEDS: hydrALAZINE 20 MG/ML VIAL IV PRN ×2 (12:03→18:41)
[2020-04-12] MEDS: ACETAMINOPHEN 325 MG TABLET PO PRN (12:03)
[2020-04-12] MEDS ORDERED: LORazepam 1 MG TABLET PO PRN (16:51)
[2020-04-12] MEDS: LIDOCAINE PATCH TOPICAL SCH (21:23)
[2020-04-12] MEDS: SENNOSIDES/DOCUSATE SODIUM 1 TAB TABLET PO SCH (21:25)
[2020-04-12] MEDS: oxyCODONE HCL 5 MG TABLET PO PRN (21:25)
[2020-04-12] MEDS: MELATONIN 3 MG TABLET PO PRN (21:25)
[2020-04-12] MEDS: APIXABAN 5 MG TABLET PO SCH (21:26)
[2020-04-13] MEDS: 0.9 % SODIUM CHLORIDE 10 ML SYRINGE IV SCH (04:06)
[2020-04-13] MEDS: hydrALAZINE 20 MG/ML VIAL IV PRN (08:16)
[2020-04-13] MEDS: VITAMIN D3 1,000 UNIT TABLET PO SCH (08:17)
[2020-04-13] MEDS: CHLORTHALIDONE 25 MG TABLET PO SCH (08:17)
[2020-04-13] MEDS: DOCUSATE SODIUM 100 MG CAPSULE PO SCH (08:17)
[2020-04-13] MEDS: APIXABAN 5 MG TABLET PO SCH (08:17)
[2020-04-13] MEDS: DILTIAZEM 120 MG CAP.XL.24H PO SCH (08:17)
[2020-04-13] MEDS: METOPROLOL TARTRATE 50 MG TABLET PO SCH (08:17)
[2020-04-13] MEDS: MULTIVIT,THER IRON,CA,FA & MIN 1 TABLET PO SCH (08:18)
[2020-04-13] MEDS: FLUoxetine HCL 20 MG CAPSULE PO SCH (08:18)
[2020-04-13] MEDS: ACETAMINOPHEN 325 MG TABLET PO PRN ×2 (08:27→10:11)
[2020-04-13] MEDS: traMADol 50 MG TABLET PO PRN ×2 (08:27→10:11)
== END 2020-04-13 11:10 ==
LOC: MEDSUR 11:14 → ED 11:14 → MEDSUR 16:26
PROVIDERS: ADMIT Internal Medicine; ATTEND Internal Medicine